=== PATIENT | male | born 1945 | race Caucasian/White ===

== ENCOUNTER 2020-02-02 02:14 | Outpatient (CLI) | payer MEDICARE, SELFPAY ==
[2020-02-02 19:10] LABS: SARS-CoV-2 RNA PCR Negative
== END 2020-02-02 02:15 | disposition home or self-care (01) ==
LOC: ANHCOVIDDT 02:15
PROVIDERS: PCP Family Medicine; Visit Provider Internal Medicine Gastroenterology
DX: Z01.818 Encounter for other preprocedural examination (principal); Z20.828 Contact with and (suspected) exposure to other viral communicable diseases
CPT/HCPCS: 87635; C9803; U0003

== ENCOUNTER 2020-02-05 00:45 | Day surgery (SDC) | payer MEDICARE, SELFPAY ==
[2020-01-29 13:54] VITALS: BMI 29.2
--- NOTE | 2020-02-05 07:54 | P.PNAN_ITS ---
Anes - Initial Pre Proc Eval Procedure: Operation Date: 02/05/20 09:00 Proposed Procedures p Screening Colonoscopy - Khurram Kumar MD Date/Time: 02/05/20 07:54 Surgeon: Khurram Kumar MD Pre Op Diagnosis: Neoplasm Screening, Hx Of Colon Polyps Patient Data Age: 74 Gender: M Height: 1.68 m Weight: 82 kg Allergies Allergy/AdvReac Type Severity Reaction Status Date / Time Penicillins Allergy Intermediate ITCHING Verified 02/05/20 08:09 Home Medications Medication Instructions Recorded Confirmed Type amlodipine [Norvasc] 5 mg PO DAILY 01/29/20 02/05/20 History atorvastatin [Lipitor] 20 mg PO DAILY 01/29/20 02/05/20 History benazepril [Lotensin] 40 mg PO DAILY 01/29/20 02/05/20 History latanoprost [Xalatan] 1 drp OPHTHALMIC (EYE) DAILY 01/29/20 02/05/20 History metoprolol tartrate 25 mg PO DAILY 01/29/20 02/05/20 History Patient hx anesthesia problems: none Family hx anesthesia problems: none [facility] Past Medical History Medical History (Updated 02/05/20 @ 08:44 by Khurram Kumar MD) Atrial fibrillation HTN (hypertension) Hypercholesterolemia Overweight (BMI 25.0-29.9) Social History Social History Smoking status: Never smoker Substance use type: does not use Living arrangements: with family Gender identity (if verbalized by the patient): Male Spiritual care concerns: No Anes - Eval Final PreProcedure Day of Procedure 02/05/20 07:54 Patient weight: overweight Heart: regular rate and rhythm Lungs: clear to auscultation and normal air movement Airway: Mallampati scale class II Neurological: alert and oriented Last oral intake: >/= 8 hours ASA classification: III Emergent: no Anesthetic plan: proceed Anesthesia type and monitoring: general GIVS Informed Consent: The patient's anesthetic plan and its attendant risks and benefits were discussed with the patient/family/POA. Questions were solicited and answers provided to the satisfaction of the patient/family/POA.
[2020-02-05 08:11] VITALS: BP 133/67; PULSE 72; RESP 16; TEMP 36.4; O2SAT 99
[2020-02-05] MEDS: LACTATED RINGERS 1,000 ML 150 ML IV CONT (08:21)
--- NOTE | 2020-02-05 08:42 | WPDGICN ---
Assessment and Plan Assessment and plan (1) History of colon polyps: Code(s): Z86.010 - Personal history of colonic polyps Status: Acute Assessment and Plan: Patient has a history of adenomatous colon polyps removed from the colon in 2017. Plan is for surveillance exam at this time ended intervals in the future. (2) Atrial fibrillation: Code(s): I48.91 - Unspecified atrial fibrillation Status: Acute GI Consult Note Consult date/time: 02/05/20 08:42 HPI: Roland Reno is a 74 year old male Presents for follow-up of colon polyps. Patient had several large adenomatous colon polyps removed from the colon in 2017. He reports his current weight appetite bowel movements are normal. He denies abdominal pain. He has had no bleeding. Family history is noncontributory. Review of Systems Review of Systems: All systems reviewed & are unremarkable except as noted in HPI and below PMFSH Past Medical History Medical History (Updated 02/05/20 @ 08:44 by Khurram Kumar MD) Atrial fibrillation HTN (hypertension) Hypercholesterolemia Overweight (BMI 25.0-29.9) Social History Social History Smoking status: Never smoker Substance use type: does not use Living arrangements: with family Gender identity (if verbalized by the patient): Male Spiritual care concerns: No Meds Home Medications and Allergies Home Medications Medication Instructions Recorded Confirmed Type amlodipine [Norvasc] 5 mg PO DAILY 01/29/20 02/05/20 History atorvastatin [Lipitor] 20 mg PO DAILY 01/29/20 02/05/20 History benazepril [Lotensin] 40 mg PO DAILY 01/29/20 02/05/20 History latanoprost [Xalatan] 1 drp OPHTHALMIC (EYE) DAILY 01/29/20 02/05/20 History metoprolol tartrate 25 mg PO DAILY 01/29/20 02/05/20 History Allergies Allergy/AdvReac Type Severity Reaction Status Date / Time Penicillins Allergy Intermediate ITCHING Verified 02/05/20 08:09 Vital Signs Vital Signs - 24 hr 02/05/20 08:11 Temperature 97.6 F Pulse Rate 72 Respiratory Rate 16 Blood Pressure 133/67 Pulse Oximetry 99 Exam Narrative: Exam Narrative: Physical exam reveals Vital Signs to be stable. HEENT exam unremarkable. Lungs are clear to auscultation and percussion. Heart is without murmur or extra sounds. Abdominal exam bowel sounds are present soft nontender with no organomegaly. Digital external rectal exam is normal.
[2020-02-05 09:41] VITALS: BP 122/73; PULSE 63; RESP 16; O2SAT 96
[2020-02-05 09:51] VITALS: BP 121/66; PULSE 56; RESP 18; O2SAT 97
[2020-02-05 10:01] VITALS: BP 127/76; PULSE 60; RESP 20; O2SAT 99
== END 2020-02-05 10:15 | disposition home or self-care (01) ==
PROVIDERS: PCP Family Medicine; Visit Provider Internal Medicine Gastroenterology
PROC: 0DJD8ZZ Inspection of Lower Intestinal Tract, Via Natural or Artificial Opening Endoscopic (ICD-10-PCS; CPT 45378; principal; 2020-02-05 09:00)
DX: Z12.11 Encounter for screening for malignant neoplasm of colon (principal); D12.5 Benign neoplasm of sigmoid colon; K64.8 Other hemorrhoids; I48.91 Unspecified atrial fibrillation; E78.00 Pure hypercholesterolemia, unspecified; I10 Essential (primary) hypertension
CPT/HCPCS: 45385; 88305; C9803; J2704; J7120; U0003

== ENCOUNTER 2020-05-27 08:59 | Outpatient (CLI) | payer MEDICARE, SELFPAY ==
--- NOTE | ~2020-05-27 | US_ITS ---
EXAMINATION: US aorta DATE: 05/27/2020 09:40 CDT INDICATION: Evaluate for abdominal aortic aneurysm TECHNIQUE: Grayscale, color Doppler, and pulsed Doppler images of the aorta and common iliac arteries were obtained. COMPARISON: 05/16/2018. FINDINGS: The proximal aorta measures 2.9 cm greatest axial dimension. The mid aorta measures 2.1 cm greatest a xial dimension. The distal aorta measures 2 cm greatest axial dimension. The right common internal il iac artery measures 1.2 cm. The left common iliac artery measures 1.2 cm. IMPRESSION: 1. Mild atherosclerosis of the abdominal aorta without evidence for aneurysm. Reviewed, dictated and finalized at location B.
== END 2020-05-27 09:00 | disposition home or self-care (01) ==
PROVIDERS: PCP Family Medicine; Visit Provider Family Medicine
DX: I71.4 Abdominal aortic aneurysm, without rupture (principal)
CPT/HCPCS: 76775

== ENCOUNTER 2021-04-16 07:17 | Emergency (ER) | payer MEDICARE, SELFPAY ==
--- NOTE | ~2021-04-16 | CT_ITS ---
EXAMINATION: CT lumbar spine wo con DATE: 04/16/2021 07:55 INDICATION: Bilateral lower extremity numbness. TECHNIQUE: Computed tomography (CT) of the lumbar spine was performed without intravenous contrast. A utomated exposure control and iterative reconstruction technique were employed. The dose-length produ ct was 864.26 mGy-cm. COMPARISON: Lumbar spine radiographs 01/11/2017 FINDINGS: Bone alignment is normal. Vertebral body heights are normal. There is mildly decreased disc height at L5-S1. The following disc levels are specifically discussed: L1-L2: The disc does not extend beyond the endplate margin. There is moderate bilateral facet joint o steoarthritis. There is no neural foraminal stenosis. There is no central canal stenosis. L2-L3: The disc is bulging. There is severe right and moderate left facet joint osteoarthritis. There is mild bilateral neural foraminal stenosis. There is no central canal stenosis. L3-L4: The disc is bulging. There is severe bilateral facet joint osteoarthritis. There is mild right and moderate left neural foraminal stenosis. There is mild central canal stenosis. L4-L5: The disc is bulging. There is severe bilateral facet joint osteoarthritis. There is moderate b ilateral neural foraminal stenosis. There is mild central canal stenosis. L5-S1: The disc is bulging. There is severe right and moderate left facet joint osteoarthritis. There is moderate and mild left neural foraminal stenosis. There is mild central canal stenosis. IMPRESSION: 1. Moderate lumbar spondylosis. Reviewed, dictated and finalized at location A. NESS RN
[2021-04-16 07:21] VITALS: BP 166/97; PULSE 86; RESP 18; TEMP 36.6; O2SAT 95
--- NOTE | 2021-04-16 07:42 | ED.GENADULT ---
HPI - General Adult General Chief complaint: Extremity Problem,Nontraumatic Stated complaint: b/l LE tingling Time Seen by Provider: 04/16/21 07:19 Source: patient Mode of arrival: ambulatory Limitations: no limitations History of Present Illness HPI narrative: Patient is 75 years old white male presented to the ED with numbness of the lower extremity bilaterally for the last 3 weeks, patient denies any weakness or having similar symptoms in the past. Patient is telling me that he been using a vibrator to stimulate his prostate because of erectile dysfunction over the last 2 to 3 months. Patient was seen by his family physician 1 week ago who started him on muscle relaxant. Patient denies any fever, chills, nausea, vomiting, urinary symptoms or bowel symptoms. Related Data Home Medications Medication Instructions Recorded Confirmed amlodipine [Norvasc] 5 mg PO DAILY 01/29/20 02/05/20 atorvastatin [Lipitor] 20 mg PO DAILY 01/29/20 02/05/20 benazepril [Lotensin] 40 mg PO DAILY 01/29/20 02/05/20 latanoprost [Xalatan] 1 drp OPHTHALMIC (EYE) DAILY 01/29/20 02/05/20 metoprolol tartrate 25 mg PO DAILY 01/29/20 02/05/20 Allergies Allergy/AdvReac Type Severity Reaction Status Date / Time Penicillins Allergy Intermediate ITCHING Verified 04/10/21 16:56 Review of Systems Review of Systems: CONSTITUTIONAL: Denies fever, chills, or sweats. EYES: Denies visual changes, redness, or discharge. ENT: Denies rhinorrhea, congestion, sore throat, or otalgia. CARDIOVASCULAR: Denies chest pain, palpitations, or edema. RESPIRATORY: Denies cough or dyspnea. GASTROINTESTINAL: Denies abdominal pain, nausea, vomiting, or diarrhea. GENITOURINARY: Denies dysuria or hematuria. SKIN: Denies rash or itching. MUSCULOSKELETAL: Denies back pain, joint pain, or myalgia. NEUROLOGIC: Denies headache, numbness, or weakness. PSYCHIATRIC: Denies anxiety or depression. [facility] Past Medical History Medical History Atrial fibrillation HTN (hypertension) Hypercholesterolemia Overweight (BMI 25.0-29.9) Social History Social History Smoking status: Never smoker Substance use type: does not use Gender identity (if verbalized by the patient): Male Spiritual care concerns: No Exam Narrative: General appearance: Well-developed, well-nourished Skin: Normal color Head: Normocephalic, nontraumatic Eyes: Clear conjunctiva ENT: Oropharynx normal, ears normal, nose normal Neck: Supple, nontender Chest and respiratory: Airway patent, no respiratory distress, no accessory muscle use Heart: Regular rate/rhythm Abdomen: Soft, nontender, no organomegaly, quiet bowel sounds Vascular: Normal peripheral pulses, normal capillary refill. Musculoskeletal: Normal range of motion, nontender back Neurologic: Alert and oriented ?3, RADIOLOGICAL ENGINEER is normal as tested, no gross motor deficit Course Course Emergency Course: Stable Vital Signs Vital signs: Vital Signs Temperature 36.6 C 04/16/21 07:21 Pulse Rate 86 04/16/21 07:21 Respiratory Rate 18 04/16/21 07:21 Blood Pressure 166/97 H 04/16/21 07:21 Pulse Oximetry 95 04/16/21 07:21 Temperature 36.6 C 04/16/21 07:21 Pulse Rate 86 04/16/21 07:21 Respiratory Rate 18 04/16/21 07:21 Blood Pressure 166/97 H 04/16/21 07:21 Pulse Oximetry 95 04/16/21 07:21 Medical Decision Making MDM Narrative Medical decision making narrative: Peripheral neuropathy is my concern. Work-up today showed no significant findings to explain patient condition. Patient need to follow-up with his family physician for vitamin deficiency an
[2021-04-16 07:56] LABS: Alanine Aminotransferase 34 U/L (4-50); Albumin Level 3.9 g/dL (3.5-5.1); Alkaline Phosphatase 76 U/L (38-126); Anion Gap 6 mmol/L (8-16); Aspartate Amino Transferase 31 U/L (17-59); Bilirubin,Total 0.9 mg/dL (0.2-1.3); Blood Urea Nitrogen 15 mg/dL (9-20); CRP < 0.5 mg/dL (<1.0); Calcium 8.7 mg/dL (8.4-10.2); Carbon Dioxide 29 mmol/L (22-30); Chloride 103 mmol/L (98-107); Estimated CRCL calculation 51 ml/min; Estimated Glomerular Filt Rate > 60; Glucose 102 mg/dL (65-110); Potassium 3.7 mmol/L (3.4-5.0); Sodium 138 mmol/L (137-145)
[2021-04-16 08:24] LABS: Basophils Percent Auto 0.4 % (0.2-1.2); Eosinophils Absolute Auto 0.2 K/mm3 (0-0.3); Eosinophils Percent Auto 2.7 % (0-4.4); Hematocrit 46.7 % (42.0-52.0); Hemoglobin 15.4 g/dL (14.0-18.0); Immature Granulocyte Absolute 0.03 K/mm3 (0.00-0.031); Immature Granulocyte Percent A 0.4 % (0-0.5); Lymphocytes Absolute Auto 1.33 K/mm3 (0.9-3.2); Lymphocytes Percent Auto 18.6 % (18.3-44.2); Mean Corpuscular Hemoglobin 30.3 pg (26-34); Mean Corpuscular Volume 91.7 fl (80-100); Mean Platelet Volume 10.2 fl (7.4-10.4); Monocytes Absolute Auto 0.7 K/mm3 (0.1-0.6); Monocytes Percent Auto 9.5 % (2.6-8.5); Neutrophils Absolute Auto 4.9 K/mm3 (1.3-6.7); Neutrophils Percent Auto 68.4 % (45.5-73.1); Platelet Count Result 185 k/mm3 (150-375); Red Blood Count 5.09 M/mm3 (4.6-6.20); White Blood Count 7.1 K/mm3 (4.5-10.0)
[2021-04-16 08:30] VITALS: BP 123/80; PULSE 64; RESP 16; O2SAT 100
[2021-04-16 09:05] LABS: Erythrocyte Sedimentation Rate 6 mm/hr (0-20)
== END 2021-04-16 08:30 | disposition home or self-care (01) ==
PROVIDERS: Emergency Provider Emergency Medicine; PCP Family Medicine
DX: R20.2 Paresthesia of skin (principal); I48.91 Unspecified atrial fibrillation; I10 Essential (primary) hypertension; E78.5 Hyperlipidemia, unspecified
CPT/HCPCS: 36415; 72131; 80053; 85025; 85652; 86140; 99284

== ENCOUNTER 2021-05-14 10:20 | Outpatient (CLI) | payer MEDICARE, SELFPAY ==
--- NOTE | ~2021-05-14 | US_ITS ---
EXAMINATION: US aorta DATE: 05/14/2021 10:49 INDICATION: Abdominal aortic aneurysm without rupture TECHNIQUE: Grayscale, color Doppler, and pulsed Doppler images of the aorta and common iliac arteries were obtained. COMPARISON: None. FINDINGS: The proximal aorta measures 3.0 x 3.0 cm. The mid aorta measures 2.9 cm. The distal aorta measures 2. 0 cm. The right common iliac artery measures 1.2 cm. The left common iliac artery measures 1.0 cm. IMPRESSION: 1. No abdominal aortic aneurysm. Reviewed, dictated and finalized at location A.
== END 2021-05-14 10:21 | disposition home or self-care (01) ==
LOC: ANHIMG 10:22
PROVIDERS: PCP Family Medicine; Visit Provider Family Medicine
DX: I71.4 Abdominal aortic aneurysm, without rupture (principal)
CPT/HCPCS: 76775

== ENCOUNTER 2021-05-20 09:57 | Outpatient (CLI) | payer MEDICARE, SELFPAY ==
--- NOTE | 2021-05-20 11:00 | NEURO_ITS ---
Impression: # Complains of burning and stinging in lower extremities. # Normal motor and sensory nerve conduction study. # Normal needle/EMG exam. # Clinical correlation recommended. Nerve Conduction Studies Anti Sensory Summary Table Stim Site NR Peak (ms) P-T Amp (?V) Site1 Site2 Delta-P (ms) Dist (cm) Man (m/s) Left Sup Fibular Anti Sensory (Ant Lat Mall) 14 cm 3.4 9.1 14 cm Ant Lat Mall 3.4 16.0 47 Right Sup Fibular Anti Sensory (Ant Lat Mall) 14 cm 3.4 11.8 14 cm Ant Lat Mall 3.4 16.0 47 Left Sural Anti Sensory (Lat Mall) Calf 3.7 11.8 Calf Lat Mall 3.7 16.0 43 Right Sural Anti Sensory (Lat Mall) Calf 3.8 10.8 Calf Lat Mall 3.8 16.0 42 Motor Summary Table Stim Site NR Onset (ms) O-P Amp (mV) Site1 Site2 Delta-0 (ms) Dist (cm) Man (m/s) Left Peroneal Motor (Vastus Med) Ankle 4.8 2.0 Popit Ankle 7.6 37.0 49 Popit 12.4 3.1 Right Peroneal Motor (Vastus Med) Ankle 5.2 3.5 Popit Ankle 6.8 34.0 50 Popit 12.0 3.0 Left Tibial Motor (Abd Ohara Brev) Ankle 4.9 7.2 Knee Ankle 7.7 37.0 48 Knee 12.6 6.1 Right Tibial Motor (Abd Ohara Brev) Ankle 4.6 8.6 Knee Ankle 7.9 37.0 47 Knee 12.5 7.4 F Wave Studies NR F-Lat (ms) L-R F-Lat (ms) Left Peroneal (Mrkrs) (EDB) 44.94 1.29 Right Peroneal (Mrkrs) (EDB) 42.19 12.75 Left Tibial (Mrkrs) (Abd Hallucis) 45.51 0.39 Right Tibial (Mrkrs) (Abd Hallucis) 45.90 0.39 EMG Side Muscle Nerve Root Ins Act Fibs Amp Dur Recrt Comment Right AntTibialis Dp Br Fibular L4-5 Nml Nml Nml Nml Nml Right Gastroc Tibial S1-2 Nml Nml Nml Nml Nml Right Fibularis Long Sup Br Fibular L5-S1 Nml Nml Nml Nml Nml Right Flex Dig Long Tibial L5-S2 Nml Nml Nml Nml Nml Right Ext Dig Brev Dp Br Fibular L5, S1 Nml Nml Nml Nml Nml Left AntTibialis Dp Br Fibular L4-5 Nml Nml Nml Nml Nml Left Gastroc Tibial S1-2 Nml Nml Nml Nml Nml Left Fibularis Long Sup Br Fibular L5-S1 Nml Nml Nml Nml Nml Left Flex Dig Long Tibial L5-S2 Nml Nml Nml Nml Nml Left Ext Dig Brev Dp Br Fibular L5, S1 Nml Nml Nml Nml Nml MTDD
== END 2021-05-20 09:58 | disposition home or self-care (01) ==
PROVIDERS: PCP Family Medicine; Visit Provider Family Medicine
DX: R20.2 Paresthesia of skin (principal)
CPT/HCPCS: 95886; 95910

== ENCOUNTER 2021-10-01 13:37 | Emergency (ER) | payer MEDICARE, SELFPAY ==
[2021-10-01 13:44] VITALS: BP 128/80; PULSE 89; RESP 16; TEMP 36.3; O2SAT 97
--- NOTE | 2021-10-01 14:22 | PC.NURSE ---
Poison Control contacted. Per Radha patient should be displaying more symptoms of chemical exposure if the tongue and lip burning were related to the Eliminator [place] and Grass Killer (Super Concentrate). She states that she would expect to see a rash, swelling of the lips and tongue and possible difficulty breathing. Radha does not suspect that his symptoms are related to the use of the product. She did not provide any recommendations on monitoring or testing.
--- NOTE | 2021-10-01 16:45 | ED.GENADULT ---
HPI - General Adult General Chief complaint: Unspecified Stated complaint: lips and tongue burning x 1 wk - chemical exposure Time Seen by Provider: 10/01/21 15:36 Source: patient Mode of arrival: ambulatory Limitations: no limitations History of Present Illness HPI narrative: This is a 76 year old male that presents to the ER for burning sensation of his lips and tongue. Reports he was outside using a weed killer. He went to shower off after and started to note some burning and irritation of his lips and tongue. Reports this has been chronic since. He has not noted any rashes or lesions in his mouth. Denies fevers. Related Data Home Medications Medication Instructions Recorded Confirmed amlodipine 5 mg tablet (Norvasc) 5 mg PO DAILY 01/29/20 02/05/20 atorvastatin 20 mg tablet (Lipitor) 20 mg PO DAILY 01/29/20 02/05/20 benazepril 40 mg tablet (Lotensin) 40 mg PO DAILY 01/29/20 02/05/20 latanoprost 0.005 % eye drops 1 drp ophthalmic (eye) DAILY 01/29/20 02/05/20 (Xalatan) metoprolol tartrate 25 mg tablet 25 mg PO DAILY 01/29/20 02/05/20 Allergies Allergy/AdvReac Type Severity Reaction Status Date / Time Penicillins Allergy Intermediate ITCHING Verified 04/10/21 16:56 Review of Systems Review of Systems: CONSTITUTIONAL: Denies fever ENT: Denies sore throat All systems reviewed & are unremarkable except as noted in HPI and below PMFSH Past Medical History Medical History Atrial fibrillation HTN (hypertension) Hypercholesterolemia Overweight (BMI 25.0-29.9) Social History Social History Smoking status: Never smoker Substance use type: does not use Gender identity (if verbalized by the patient): Male Spiritual care concerns: No Exam Narrative: GENERAL: Well-appearing, well-nourished, and in no acute distress. HEAD: Normocephalic, atraumatic. EYES: EOMI. ENT: Nares clear, no rhinorrhea or epistaxis. Mucous membranes moist. Oropharynx without tonsillar hypertrophy exudate or other lesions. No abnormal rashes or lesions noted of the lips or in the mouth NECK: Supple. No adenopathy or masses. CHEST: Clear to auscultation. No respiratory distress. No wheezes rales or rhonchi HEART: Regular rate and rhythm. No murmur heard. Normal peripheral pulses. EXTREMITIES: Normal range of motion. No edema. SKIN: Warm, dry, no rash. NEURO: No focal deficits. Alert and oriented x3. PSYCH: Normal mood and affect Course Vital Signs Vital signs: Vital Signs Temperature 97.4 F L 10/01/21 13:44 Pulse Rate 89 10/01/21 13:44 Respiratory Rate 16 10/01/21 13:44 Blood Pressure 128/80 10/01/21 13:44 Pulse Oximetry 97 10/01/21 13:44 Temperature 97.4 F L 10/01/21 13:44 Pulse Rate 89 10/01/21 13:44 Respiratory Rate 16 10/01/21 13:44 Blood Pressure 128/80 10/01/21 13:44 Pulse Oximetry 97 10/01/21 13:44 Medical Decision Making MDM Narrative Medical decision making narrative: Patient presents to the emergency department for a burning sensation of his lips and tongue. Present over the last week. Was concerned it was may be due to exposure to a weed killer product. We did call poison control who did not seem to be concerned for this. There are no abnormal lesions noted of his lips or in his mouth. He did have a small sagastume lesion noted on the bottom gums. He reports this has been present since a root canal. Otherwise there is nothing concerning on exam. He was instructed to have follow-up with ENT. He was given warnings to return to the ER Vital Signs Vital Signs: Vital Signs Temperature 97.4 F L 10/01/21 13:44 Pulse Rate 89 10/01/21 13:44 Respiratory Rate 16 10/01/21 13:44 Blood Pressure 128/80 10/01/21 13:44 Pulse Oximetry 97 10/01/21 13:44 Temperature 97.4 F L 10/01/21 13:44 Pulse Rate 89 10/01/21 13:44 Respiratory Rate 16 10/01/21 13:44 Blood Pr
[2021-10-01 17:02] VITALS: BP 112/68; PULSE 72; RESP 18; O2SAT 99
== END 2021-10-01 17:04 | disposition home or self-care (01) ==
PROVIDERS: Emergency Provider Emergency Medicine; PCP Family Medicine
DX: K14.6 Glossodynia (principal); I48.91 Unspecified atrial fibrillation; I10 Essential (primary) hypertension; E78.5 Hyperlipidemia, unspecified
CPT/HCPCS: 99281

== ENCOUNTER 2024-02-25 10:11 | Inpatient (IN) | payer MEDICARE, SELFPAY ==
--- NOTE | 2024-02-25 | ECHO_ITS ---
Patient Info Name: Roland Reno Age: 78 years : 1945 Gender: Male Ht: 66 in Wt: 185 lbs BSA: 2.00 m2 HR: 79 bpm BP: 148 / 86 mmHg Heart Rhythm: Sinus Rhythm Technical Quality: Fair Exam Date: 02/25/2024 3:05 PM Exam Location: Echo Lab Patient Status: Outpatient Admit Date: 02/25/2024 Staff Ordering Physician: Vera Barbosa DO Computer Programming Manager: Becca Perez RDCS Attending Provider: Alfredo Carrillo MD Referring Physician: Chelsey SURESH; Exam Type: CA echo dop color flow w con Study Info Indications - Acute pulmonary embolism Complete two-dimensional, color flow and Doppler transthoracic echocardiogram is performed with contrast to opacify the left ventricle and to improve the deliniation of the left ventricle endocardial borders. Contrast/Agitated Saline Contrast/Ag. Saline: Definity Amount: 2.00 ml Administered By: Becca Perez RDCS Existing IV Access: Yes IV Access Condition: patent with no signs of infiltration Summary 1. Left ventricular chamber dimension is mildly enlarged. 2. Left ventricular systolic function is normal, estimated at 50-55%. 3. There is mildly increased left ventricular wall thickness. 4. Left ventricular septal wall motion is abnormal with septal motion related to bundle branch block. 5. The left ventricular diastolic function is abnormal. 6. Left atrial chamber dimension is mildly enlarged. 7. There is mild aortic valve calcification. 8. There is mild mitral valve regurgitation. 9. The mitral valve has thickened leaflets. 10. There is mild tricuspid valve regurgitation. Left Ventricle Left ventricular chamber dimension is mildly enlarged. Left ventricular systolic function is normal, estimated at 50-55%. There is mildly increased left ventricular wall thickness. Left ventricular septal wall motion is abnormal with septal motion related to bundle branch block. The left ventricular diastolic function is abnormal. Right Ventricle Right ventricular chamber dimension is normal. Right ventricular systolic function is normal. Left Atria Left atrial chamber dimension is mildly enlarged. Right Atria Right atrial chamber dimension is normal. Atrial Septum Intact interatrial septum visualized by color flow imaging. Aortic Valve The aortic valve is probable trileaflet. There is no aortic valve stenosis. There is trace aortic valve regurgitation. There is mild aortic valve calcification. Pulmonic Valve The pulmonic valve is normal. There is no pulmonic valve stenosis. There is trace pulmonic regurgitation. Mitral Valve The mitral valve has thickened leaflets. There is no mitral valve stenosis. There is mild mitral valve regurgitation. Tricuspid Valve The tricuspid valve leaflets are normal. There is no significant tricuspid valve stenosis. There is mild tricuspid valve regurgitation. No pulmonary hypertension, estimated pulmonary arterial systolic pressure is 26 mmHg. Other Findings Pleural effusion noted. Pericardium/Pleural The pericardium appears normal. There is no pericardial effusion. Inferior Vena Cava Normal inferior vena cava with >50% collapse upon inspiration consistent with normal right atrial pressure, 10 mmHg. Aorta The prox ascending aorta size is normal. Left Ventricular Outflow Tract Name Value Normal LVOT 2D LVOT Diameter 1.97 cm LVOT Doppler LVOT Peak Gradient 6 mmHg LVOT Mean Gradient 3 mmHg LVOT VTI 20.47 cm LVOT VTI/AV VTI Ratio 0.74 LVOT Stroke Volume 62.42 ml LVOT CO 5.38 l/min LVOT CI 2.69 L/min/m2 Pulmonic Valve Name Value Normal RVOT Doppler RVOT Peak Gradient 4 mmHg PV Doppler PV Peak Gradient 6 mmHg Mitral Valve Name Value Normal MV Doppler MV Decel [place] 691.07 cm/s2 MV PHT 0 s MV Area (PHT) 3.98 cm2 4.00-5.00 MV Diastolic Function MV E Peak Velocity 131.60 cm/s MV A Peak Velocity 0.94 cm/s MV E/A 140.18 MV Decel Time 0 s MV Annular TDI MV E/e' (Septal) 20.53 <=8.00 MV E/e' (Lateral) 19.24 <=8.00 MV E/e' (Average) 19.89 Tricuspid Valve Name Value Normal TV Regurgitation Doppler TR Peak Velocity 202.55 cm/s TR Peak Gradient 16 mmHg Estimated PAP/RSVP RA Pressure 10 mmHg <=5 PA Systolic Pressure 26 mmHg <36 RV Systolic Pressure 26 mmHg <36 Aorta Name Value Normal Ascending Aorta Ao Root Diameter (MM) 2.50 cm Ao Root Diam Index (MM) 1.25 cm/m2 Aortic Valve Name Value Normal AV Doppler AV Peak Velocity 182.41 cm/s AV Peak Gradient 13 mmHg AV Mean Gradient 7 mmHg AV VTI 27.60 cm AV Area (Cont Eq VTI) 2.26 cm2 >=3.00 AV Area (Cont Eq Man) 2.07 cm2 AV Regurgitation 2D LVOT Area 3.05 cm2 Ventricles Name Value Normal LV Dimensions 2D/MM IVS Diastolic Thickness (2D) 1.08 cm 0.60-1.00 LVID Diastole (2D) 5.79 cm 4.20-5.80 LVIW Diastolic Thickness (2D) 1.14 cm 0.60-1.00 LVID Systole (2D) 4.29 cm 2.50-4.00 LVOT Diameter 1.97 cm LV Mass (2D Cubed) 267.75 g 88.00-224.00 LV Mass Index (2D Cubed) 0.01 g/cm2 0.00-0.01 Relative Wall Thickness (2D) 0.39 LV Fractional Shortening/Ejection Fraction 2D/MM LV Fractional Shortening (2D) 26 % 25-43 LV EF (2D Teicholz) 50 % 52-72 LV Diastolic Volume (4C MOD) 92.54 ml LV EF (4C MOD) 33 % LV Diastolic Volume (2C MOD) 66.76 ml LV EF (2C MOD) 24 % LV Diastolic Volume (BP MOD) 85.48 ml 62.00-150.00 LV Diastolic Volume Index (BP MOD) 0.04 l/m2 0.03-0.07 LV Systolic Volume (BP MOD) 58.90 ml 21.00-61.00 LV Systolic Volume Index (BP MOD) 0.03 l/m2 0.01-0.03 LV EF (BP MOD) 31 % 52-72 LV Diastolic Length (4C) 9.08 cm LV Systolic Length (4C) 7.52 cm LV Stroke Volume (4C MOD) 30.25 ml Atria Name Value Normal LA Dimensions LA Dimension (MM) 5.34 cm 3.00-4.10 LA Volume (4C A-L) 67.96 ml LA Volume (BP A-L) 74.97 ml RA Dimensions RA Area (4C) 14.01 cm2 <=18.00 Report Signatures
--- NOTE | ~2024-02-25 | US_ITS ---
BILATERAL LOWER EXTREMITY VENOUS ULTRASOUND Ordering provider: Vera Barbosa DO History: . Acute pulmonary embolism . Comparison: None. FINDINGS: RIGHT LOWER EXTREMITY VEINS: --COMMON FEMORAL: Patent and free of thrombus. Normal compressibility, phasic flow and augmentation. --PROXIMAL SUPERFICIAL FEMORAL: Patent and free of thrombus. Normal compressibility, phasic flow and augmentation. --DISTAL SUPERFICIAL FEMORAL: Patent and free of thrombus. Normal compressibility, phasic flow and au gmentation. --POPLITEAL: Patent and free of thrombus. Normal compressibility, phasic flow and augmentation. --POSTERIOR TIBIAL: Patent and free of thrombus. Normal compressibility, phasic flow and augmentation . LEFT LOWER EXTREMITY VEINS: --COMMON FEMORAL: Patent and free of thrombus. Normal compressibility, phasic flow and augmentation. --PROXIMAL SUPERFICIAL FEMORAL: Patent and free of thrombus. Normal compressibility, phasic flow and augmentation. --DISTAL SUPERFICIAL FEMORAL: Patent and free of thrombus. Normal compressibility, phasic flow and au gmentation. --POPLITEAL: Patent and free of thrombus. Normal compressibility, phasic flow and augmentation. --POSTERIOR TIBIAL: Patent and free of thrombus. Normal compressibility, phasic flow and augmentation . IMPRESSION: Negative bilateral lower extremity venous US. No deep vein thrombosis. Reviewed, dictated and finalized at location A. LATORY ATTORNEY
--- NOTE | ~2024-02-25 | CT_ITS ---
EXAMINATION: CTA chest PE protocol DATE: 02/25/2024 12:56 INDICATION: Hemoptysis. Abdominal pain. TECHNIQUE: Computed tomography angiography (CTA) of the chest was performed with 100 mL Omnipaque-350 intravenous contrast timed to evaluate the pulmonary arteries. Coronal maximum intensity projection 3D-reconstructions were created by the technologist. Automated exposure control and iterative reconst ruction technique were employed. The dose-length product was 422.80 mGy-cm. COMPARISON: None. FINDINGS: There are airspace and groundglass opacities involving right middle lobe, lingula, and the lower lobes, left worse than right, likely a combination of atelectasis and infarct. A calcified left lung nodule and calcified left hilar lymph nodes are consistent with old granulomatous disease. Ther e is a small left pleural effusion. The heart size is normal. No pericardial effusion. There are acut e pulmonary emboli in the right upper lobe, right lower lobe, lingula, and left lower lobe. There is mild thoracic spondylosis. IMPRESSION: 1. Bilateral acute pulmonary emboli. No right heart strain. 2. Bilateral inferior lung disease, likely a combination of atelectasis and infarct. 3. Small left pleural effusion. Reviewed, dictated and finalized at location A. NEER CONDUCTOR IMPRESSION: 1. Bilateral acute pulmonary emboli. No right heart strain. 2. Bilateral inferior lung disease, likely a combination of atelectasis and inf arct. 3. Small left pleural effusion.
--- NOTE | ~2024-02-25 | CT_ITS ---
EXAMINATION: CT abdomen pelvis w con DATE: 02/25/2024 12:53 INDICATION: Abdominal pain and swelling TECHNIQUE: Computed tomography (CT) of the abdomen and pelvis was performed with 100 mL Omnipaque-350 intravenous contrast. Automated exposure control and iterative reconstruction technique were employe d. The dose-length product was 654.63 mGy-cm. COMPARISON: None FINDINGS: Small left pleural effusion. Bandlike discoid atelectasis in the right middle and lower lobes. Region of consolidation in the left lower lobe which could represent additional atelectasis or pneumonia. R egions of groundglass opacity posterior sulcus of the right lower lobe and at the posterolateral ling eda with some peripheral consolidation. The region of groundglass opacity but appearance is suspiciou s for pulmonary infarcts and pulmonary emboli are evident in the right lower lobar pulmonary arteries . Heart size is normal. No pericardial effusion. Cholecystectomy clips the gallbladder fossa. Liver, spleen, pancreas and bilateral adrenal glands are normal. There are small regions of cortical scarring at both kidneys which could represent sequela p rior infection or infarction. No bowel obstruction. Bladder is normal. Prostatomegaly measuring 4.7 x 4.7 cm. Small fat-containing left inguinal hernia. No free intraperitoneal gas or fluid. No patholog ically enlarged abdominal or pelvic lymphadenopathy. Mild to moderate thoracic and mild lumbar spondy losis. IMPRESSION: 1. Pulmonary emboli in the right lower lobe and groundglass opacity and consolidation in the bilatera l lower lobes suspicious for associated pulmonary infarcts versus less likely pneumonia. 2. Small left pleural effusion. 3. No acute intra-abdominal/pelvic process. Reviewed, dictated and finalized at location B. R DIGGER OPERATOR IMPRESSION: 1. Pulmonary emboli in the right lower lobe and groundglass opacity and consoli dation in the bilateral lower lobes suspicious for associated pulmonary infarct s versus less likely pneumonia. 2. Small left pleural effusion. 3. No acute intra-abdominal/pelvic process.
[2024-02-25 10:54] VITALS: BP 172/98; PULSE 78; RESP 20; TEMP 36.4; O2SAT 97
--- NOTE | 2024-02-25 10:57 | ED_ITS ---
HPI - General Adult General Chief complaint: Abdominal Pain <Eliu Sandoval PA-C - Last Filed: 02/25/24 10:59> Stated complaint: Sent by Dr Reno for abdominal pain <lEiu Sandoval PA-C - Last Filed: 02/25/24 10:59> Time Seen by Provider: 02/25/24 11:56 <Eliu Sandoval PA-C - Last Filed: 02/25/24 10:59> Focused HPI: This is a 78-year-old male who presents to the ED for chief complaint of epigastric / upper abdominal pain over the past couple of days. States it feels like I am having a gallbladder attack, but I already had my gallbladder removed. Patient reports a did start Joshua Stacey after eating. States the pain is been relatively constant and will radiates somewhat into the back/ shoulder. Denies associated vomiting. However he did have an single episode of hemoptysis today with bloody phlegm. Denies chest pain or exertional component of symptoms. He does feel that breathing hurts worse. GENERAL: Well-appearing, well-nourished, and in no acute distress. HEAD: Normocephalic, atraumatic. CHEST: Clear to auscultation. No respiratory distress. HEART: Regular rate and rhythm. ABD: Epigastric tenderness present. Soft and otherwise nontender. NEURO: Alert and oriented x3. Patient screened in triage and initial orders placed. Additional care and disposition to be based upon diagnostic testing and treatment. <Eliu Sandoval PA-C - Last Filed: 02/25/24 10:59> Source: patient <Eliu Sandoval PA-C - Last Filed: 02/25/24 10:59> Mode of arrival: ambulatory <Eliu Sandoval PA-C - Last Filed: 02/25/24 10:59> Limitations: no limitations <Eliu Sandoval PA-C - Last Filed: 02/25/24 10:59> History of Present Illness HPI narrative: 78 year old male presenting to the emergency department for evaluation for abdominal bloating, shortness of breath and hemoptysis. Patient states on he had some stomach irritation secondary to food and felt that he had some increased bloating. Patient did notice some shortness of breath at that time. Patient states through the course of the day on the he had persistent symptoms. Patient presented emergency department today for evaluation for hemoptysis that started today. Patient denies any chest pain. Patient denies any prior history of PE or DVT. Patient denies any history of cancer, hormone replacement therapy or recent surgeries. Patient denies any recent falls or injuries. Patient does have a reported history of atrial fibrillation and patient stop taking his blood thinner if years ago. Patient had been advised by his primary care physician that if he was to stop his blood thinner that he needed to take an aspirin but patient states that the aspirin worsens his gastritis so he has not been taking that. <Ashok Carranza MD - Last Filed: 02/26/24 12:54> Related Data Home medications: Home Medications ?Medication ?Instructions ?Recorded ?Confirmed ?Last Taken ?Type latanoprost 0.005 % eye drops 1 drp ophthalmic (eye) DAILY 01/29/20 02/25/24 02/25/24 History (Xalatan) omeprazole 20 mg capsule,delayed 20 mg PO DAILY PRN acid reflux 02/25/24 02/25/24 Unknown History release rosuvastatin 5 mg tablet 5 mg PO HS 02/25/24 02/25/24 02/25/24 History <Eliu Sandoval PA-C - Last Filed: 02/25/24 10:59> Allergies/adverse reactions: Allergies Allergy/AdvReac Type Severity Reaction Status Date / Time Penicillins Allergy Intermediate ITCHING Verified 11/30/23 09:36 <Eliu Sandoval PA-C - Last Filed: 02/25/24 10:59> Review of Systems 2 Review of Systems: All systems reviewed & are unremarkable except as noted in HPI and below <Ashok Carranza MD - Last Filed: 02/26/24 12:54> [facility] Past Medical History Medical History: Medical History (Updated 02/26/24 @ 10:53 by Brock Stafford NP) Benign positional vertigo Paroxysmal atrial fibrillation Atherosclerosis of aorta Post-void dribbling Benign prostatic hyperplasia with lower urinary tract symptoms Gastritis, unspecified, without bleeding GERD (gastroesophageal reflux disease) Abdominal aortic aneurysm without rupture Essential (primary) hypertension Hypercholesterolemia <Eliu Sandoval PA-C - Last Filed: 02/25/24 10:59> Surgical History Surgical History: Surgical History (Updated 02/25/24 @ 20:52 by Vera Barbosa DO) Status post cholecystectomy History of right inguinal hernia repair <Eliu Sandoval PA-C - Last Filed: 02/25/24 10:59> Social History Social History: Social History (Updated 02/25/24 @ 20:54 by Vera Barbosa DO) Social History: He lives with his of 60 years. They raised 3 children. 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 He walks 2.5 miles per day. Denies history of tobacco use. He used to occasionally drink alcohol in moderation but has not done so in many years. He denies illicit substance use. Code status: Full code Healthcare power of mergers and acquisitions attorney: Tiffany () Smoking status: Never smoker Second hand tobacco smoke exposure: No Alcohol intake: never Substance use: never Substance use type: does not use Do You Feel Safe in your Home?: Yes Lack of Transportation: No Lack of Food: Never True Current Housing: I Have Housing Concerned About Future Housing: No Difficulty Paying Gas/Electric Bills: No Difficulty Paying for Meds: No Currently Unemployed: No Education: High School Diploma/GED Difficulty w/ Childcare or Family Care: No Living arrangements: with family Occupation/Education: retired Gender identity (if verbalized by the patient): Male Sexual Orientation (if Verbalized by the Patient): Straight or Heterosexual Spiritual care concerns: No <Eliu Sandoval PA-C - Last Filed: 02/25/24 10:59> Course Vital Signs Vital signs: Vital Signs Temperature 97.6 F 02/25/24 10:54 Pulse Rate 78 02/25/24 10:54 Respiratory Rate 20 02/25/24 10:54 Blood Pressure 172/98 H 02/25/24 10:54 Pulse Oximetry 97 02/25/24 10:54 Oxygen Delivery Room Air 02/25/24 10:54 Temperature 99.1 F 02/26/24 06:00 Pulse Rate 80 02/26/24 12:00 Respiratory Rate 18 02/26/24 06:00 Blood Pressure 166/77 H 02/26/24 06:00 Pulse Oximetry 90 02/26/24 07:20 Oxygen Delivery Room Air 02/26/24 09:05 <Eliu Sandoval PA-C - Last Filed: 02/25/24 10:59> Vital Signs Temperature 97.6 F 02/25/24 10:54 Pulse Rate 78 02/25/24 10:54 Respiratory Rate 20 02/25/24 10:54 Blood Pressure 172/98 H 02/25/24 10:54 Pulse Oximetry 97 02/25/24 10:54 Oxygen Delivery Room Air 02/25/24 10:54 Temperature 99.1 F 02/26/24 06:00 Pulse Rate 80 02/26/24 12:00 Respiratory Rate 18 02/26/24 06:00 Blood Pressure 166/77 H 02/26/24 06:00 Pulse Oximetry 90 02/26/24 07:20 Oxygen Delivery Room Air 02/26/24 09:05 <Ashok Carranza MD - Last Filed: 02/26/24 12:54> Medical Decision Making MDM Narrative Medical decision making narrative: A 78-year-old male presenting to the emergency department for evaluation for abdominal bloating discomfort with hemoptysis and shortness of breath. Patient's abdominal CT showed no acute abnormalities but the CTA chest did show evidence of bilateral pulmonary embolisms without right heart strain. EKG shows a left bundle branch but no evidence of acute STEMI and patient denies any current chest pain. Patient is afebrile but does have a leukocytosis of 15.7 with a hemoglobin of 16, no significant abnormalities the patient's CMP UA was negative for infection. Patient denies any active bleeding or recent surgeries. Patient will be started on IV heparin for treatment for the pulmonary embolisms. Patient and family were updated on the results of the workup and plan for treatment and admission. All questions concerns were addressed. I discussed the case with the hospitalist and patient was accepted to [facility] <Ashok Carranza MD - Last Filed: 02/26/24 12:54> Differential Diagnosis Differential Diagnosis: Cholelithiasis, cholecystitis, colitis, diverticulitis, gastritis, small- bowel obstruction, pulmonary embolism, pneumonia, COVID, RSV, influenza <Ashok Carranza MD - Last Filed: 02/26/24 12:54> Vital Signs Vital Signs: Vital Signs Temperature 97.6 F 02/25/24 10:54 Pulse Rate 78 02/25/24 10:54 Respiratory Rate 20 02/25/24 10:54 Blood Pressure 172/98 H 02/25/24 10:54 Pulse Oximetry 97 02/25/24 10:54 Oxygen Delivery Room Air 02/25/24 10:54 Temperature 99.1 F 02/26/24 06:00 Pulse Rate 80 02/26/24 12:00 Respiratory Rate 18 02/26/24 06:00 Blood Pressure 166/77 H 02/26/24 06:00 Pulse Oximetry 90 02/26/24 07:20 Oxygen Delivery Room Air 02/26/24 09:05 <Eliu Sandoval PA-C - Last Filed: 02/25/24 10:59> Vital Signs Temperature 97.6 F 02/25/24 10:54 Pulse Rate 78 02/25/24 10:54 Respiratory Rate 20 02/25/24 10:54 Blood Pressure 172/98 H 02/25/24 10:54 Pulse Oximetry 97 02/25/24 10:54 Oxygen Delivery Room Air 02/25/24 10:54 Temperature 99.1 F 02/26/24 06:00 Pulse Rate 80 02/26/24 12:00 Respiratory Rate 18 02/26/24 06:00 Blood Pressure 166/77 H 02/26/24 06:00 Pulse Oximetry 90 02/26/24 07:20 Oxygen Delivery Room Air 02/26/24 09:05 <Ashok Carranza MD - Last Filed: 02/26/24 12:54> Lab Data Result diagrams: 02/26/24 03:30 02/26/24 03:30 <Eliu Sandoval PA-C - Last Filed: 02/25/24 10:59> Labs: Lab Results 02/25/24 02/25/24 02/25/24 Range/Units 12:30 12:44 13:03 WBC 15.7 H (4.5-10.0) K/mm3 RBC 5.27 (4.6-6.20) M/mm3 Hgb 16.0 (14.0-18.0) g/dL Hct 46.5 (42.0-52.0) % MCV 88.2 (80-100) fl MCH 30.4 (26-34) pg MCHC 34.4 (32-36) g/dl RDW 13.1 (11.5-14.5) % Plt Count 152 (150-375) k/mm3 MPV 10.7 H (7.4-10.4) fl Immature Gran % (Auto) 0.4 (0-0.5) % Neut % (Auto) 82.6 H (45.5-73.1) % Lymph % (Auto) 7.3 L (18.3-44.2) % Collier % (Auto) 9.4 H (2.6-8.5) % Eos % (Auto) 0.2 (0-4.4) % Baso % (Auto) 0.1 L (0.2-1.2) % Lymph # (Auto) 1.15 (0.9-3.2) K/mm3 Collier # (Auto) 1.5 H (0.1-0.6) K/mm3 Eos # (Auto) 0.0 (0-0.3) K/mm3 Baso # (Auto) 0.0 (0.0-0.1) K/mm3 Abs Immat Gran (auto) 0.06 H (0.00-0.031) K/mm3 Absolute Neuts (auto) 13.0 H (1.3-6.7) K/mm3 Absolute Nucleated RBC 0.000 (0.0-0.012) K/mm3 Nucleated RBC % 0.0 (0.0-0.2) % PT (11.1-14.7) Seconds INR APTT (22.3-36.8) Seconds Sodium 138 (137-145) mmol/L Potassium 4.2 (3.4-5.0) mmol/L Chloride 105 (98-107) mmol/L Carbon Dioxide 28 (22-30) mmol/L Anion Gap 5 (4-12) mmol/L BUN 20 (9-20) mg/dL Creatinine 1.00 1.10 (0.7-1.3) mg/dL Estim Creat Clear Calc 54 49 ml/min Estimated GFR > 60 > 60 (59 - ) Glucose 113 H (65-110) mg/dL Calcium 9.0 (8.4-10.2) mg/dL Total Bilirubin 1.2 (0.2-1.3) mg/dL AST 24 (17-59) U/L ALT 17 (6-50) U/L Alkaline Phosphatase 86 (38-126) U/L Total Protein 7.0 (6.3-8.2) g/dL Albumin 4.0 (3.5-5.1) g/dL Lipase 28 (23-300) U/L Urine Color Yellow (Yellow) Urine Appearance Clear (Clear) Urine pH 6.0 (5.0-9.0) Ur Specific [place] > 1.045 H (1.001-1.035) Urine Protein 1+ H (Negative) mg/dL Urine Glucose (UA) Negative (Negative) mg/dL Urine Ketones 2+ H (Negative) mg/dL Ur Blood (Man) Negative (Negative) Urine Nitrate Negative (Negative) Urine Bilirubin Negative (Negative) Urine Urobilinogen 1.0 (<2.0) mg/dL Leukocyte Esterase Rfl Negative (Negative) SYLVIA/UL Urine RBC 0-2 (0-2) /hpf Urine WBC 0-5 (0-3) /hpf Ur Squamous Epith Cells None seen (Few) /hpf Urine Bacteria None seen /hpf Urine Casts 0-2 Influenza A (RT-PCR) (Negative) Influenza B (RT-PCR) (Negative) RSV (RT-PCR) (Negative) SARS-CoV-2 RNA (RT-PCR) (Negative) 02/25/24 02/25/24 Range/Units 13:11 13:46 WBC (4.5-10.0) K/mm3 RBC (4.6-6.20) M/mm3 Hgb (14.0-18.0) g/dL Hct (42.0-52.0) % MCV (80-100) fl MCH (26-34) pg MCHC (32-36) g/dl RDW (11.5-14.5) % Plt Count (150-375) k/mm3 MPV (7.4-10.4) fl Immature Gran % (Auto) (0-0.5) % Neut % (Auto) (45.5-73.1) % Lymph % (Auto) (18.3-44.2) % Collier % (Auto) (2.6-8.5) % Eos % (Auto) (0-4.4) % Baso % (Auto) (0.2-1.2) % Lymph # (Auto) (0.9-3.2) K/mm3 Collier # (Auto) (0.1-0.6) K/mm3 Eos # (Auto) (0-0.3) K/mm3 Baso # (Auto) (0.0-0.1) K/mm3 Abs Immat Gran (auto) (0.00-0.031) K/mm3 Absolute Neuts (auto) (1.3-6.7) K/mm3 Absolute Nucleated RBC (0.0-0.012) K/mm3 Nucleated RBC % (0.0-0.2) % PT 14.0 (11.1-14.7) Seconds INR 1.1 APTT 36.0 (22.3-36.8) Seconds Sodium (137-145) mmol/L Potassium (3.4-5.0) mmol/L Chloride (98-107) mmol/L Carbon Dioxide (22-30) mmol/L Anion Gap (4-12) mmol/L BUN (9-20) mg/dL Creatinine (0.7-1.3) mg/dL Estim Creat Clear Calc ml/min Estimated GFR (59 - ) Glucose (65-110) mg/dL Calcium (8.4-10.2) mg/dL Total Bilirubin (0.2-1.3) mg/dL AST (17-59) U/L ALT (6-50) U/L Alkaline Phosphatase (38-126) U/L Total Protein (6.3-8.2) g/dL Albumin (3.5-5.1) g/dL Lipase (23-300) U/L Urine Color (Yellow) Urine Appearance (Clear) Urine pH (5.0-9.0) Ur Specific [place] (1.001-1.035) Urine Protein (Negative) mg/dL Urine Glucose (UA) (Negative) mg/dL Urine Ketones (Negative) mg/dL Ur Blood (Man) (Negative) Urine Nitrate (Negative) Urine Bilirubin (Negative) Urine Urobilinogen (<2.0) mg/dL Leukocyte Esterase Rfl (Negative) SYLVIA/UL Urine RBC (0-2) /hpf Urine WBC (0-3) /hpf Ur Squamous Epith Cells (Few) /hpf Urine Bacteria /hpf Urine Casts Influenza A (RT-PCR) Negative (Negative) Influenza B (RT-PCR) Negative (Negative) RSV (RT-PCR) Negative (Negative) SARS-CoV-2 RNA (RT-PCR) Negative (Negative) <Eliu Sandoval PA-C - Last Filed: 02/25/24 10:59> Lab Results 02/25/24 02/25/24 02/25/24 Range/Units 12:30 12:44 13:03 WBC 15.7 H (4.5-10.0) K/mm3 RBC 5.27 (4.6-6.20) M/mm3 Hgb 16.0 (14.0-18.0) g/dL Hct 46.5 (42.0-52.0) % MCV 88.2 (80-100) fl MCH 30.4 (26-34) pg MCHC 34.4 (32-36) g/dl RDW 13.1 (11.5-14.5) % Plt Count 152 (150-375) k/mm3 MPV 10.7 H (7.4-10.4) fl Immature Gran % (Auto) 0.4 (0-0.5) % Neut % (Auto) 82.6 H (45.5-73.1) % Lymph % (Auto) 7.3 L (18.3-44.2) % Collier % (Auto) 9.4 H (2.6-8.5) % Eos % (Auto) 0.2 (0-4.4) % Baso % (Auto) 0.1 L (0.2-1.2) % Lymph # (Auto) 1.15 (0.9-3.2) K/mm3 Collier # (Auto) 1.5 H (0.1-0.6) K/mm3 Eos # (Auto) 0.0 (0-0.3) K/mm3 Baso # (Auto) 0.0 (0.0-0.1) K/mm3 Abs Immat Gran (auto) 0.06 H (0.00-0.031) K/mm3 Absolute Neuts (auto) 13.0 H (1.3-6.7) K/mm3 Absolute Nucleated RBC 0.000 (0.0-0.012) K/mm3 Nucleated RBC % 0.0 (0.0-0.2) % PT (11.1-14.7) Seconds INR APTT (22.3-36.8) Seconds Sodium 138 (137-145) mmol/L Potassium 4.2 (3.4-5.0) mmol/L Chloride 105 (98-107) mmol/L Carbon Dioxide 28 (22-30) mmol/L Anion Gap 5 (4-12) mmol/L BUN 20 (9-20) mg/dL Creatinine 1.00 1.10 (0.7-1.3) mg/dL Estim Creat Clear Calc 54 49 ml/min Estimated GFR > 60 > 60 (59 - ) Glucose 113 H (65-110) mg/dL Calcium 9.0 (8.4-10.2) mg/dL Total Bilirubin 1.2 (0.2-1.3) mg/dL AST 24 (17-59) U/L ALT 17 (6-50) U/L Alkaline Phosphatase 86 (38-126) U/L Total Protein 7.0 (6.3-8.2) g/dL Albumin 4.0 (3.5-5.1) g/dL Lipase 28 (23-300) U/L Urine Color Yellow (Yellow) Urine Appearance Clear (Clear) Urine pH 6.0 (5.0-9.0) Ur Specific [place] > 1.045 H (1.001-1.035) Urine Protein 1+ H (Negative) mg/dL Urine Glucose (UA) Negative (Negative) mg/dL Urine Ketones 2+ H (Negative) mg/dL Ur Blood (Man) Negative (Negative) Urine Nitrate Negative (Negative) Urine Bilirubin Negative (Negative) Urine Urobilinogen 1.0 (<2.0) mg/dL Leukocyte Esterase Rfl Negative (Negative) SYLVIA/UL Urine RBC 0-2 (0-2) /hpf Urine WBC 0-5 (0-3) /hpf Ur Squamous Epith Cells None seen (Few) /hpf Urine Bacteria None seen /hpf Urine Casts 0-2 Influenza A (RT-PCR) (Negative) Influenza B (RT-PCR) (Negative) RSV (RT-PCR) (Negative) SARS-CoV-2 RNA (RT-PCR) (Negative) 02/25/24 02/25/24 Range/Units 13:11 13:46 WBC (4.5-10.0) K/mm3 RBC (4.6-6.20) M/mm3 Hgb (14.0-18.0) g/dL Hct (42.0-52.0) % MCV (80-100) fl MCH (26-34) pg MCHC (32-36) g/dl RDW (11.5-14.5) % Plt Count (150-375) k/mm3 MPV (7.4-10.4) fl Immature Gran % (Auto) (0-0.5) % Neut % (Auto) (45.5-73.1) % Lymph % (Auto) (18.3-44.2) % Collier % (Auto) (2.6-8.5) % Eos % (Auto) (0-4.4) % Baso % (Auto) (0.2-1.2) % Lymph # (Auto) (0.9-3.2) K/mm3 Collier # (Auto) (0.1-0.6) K/mm3 Eos # (Auto) (0-0.3) K/mm3 Baso # (Auto) (0.0-0.1) K/mm3 Abs Immat Gran (auto) (0.00-0.031) K/mm3 Absolute Neuts (auto) (1.3-6.7) K/mm3 Absolute Nucleated RBC (0.0-0.012) K/mm3 Nucleated RBC % (0.0-0.2) % PT 14.0 (11.1-14.7) Seconds INR 1.1 APTT 36.0 (22.3-36.8) Seconds Sodium (137-145) mmol/L Potassium (3.4-5.0) mmol/L Chloride (98-107) mmol/L Carbon Dioxide (22-30) mmol/L Anion Gap (4-12) mmol/L BUN (9-20) mg/dL Creatinine (0.7-1.3) mg/dL Estim Creat Clear Calc ml/min Estimated GFR (59 - ) Glucose (65-110) mg/dL Calcium (8.4-10.2) mg/dL Total Bilirubin (0.2-1.3) mg/dL AST (17-59) U/L ALT (6-50) U/L Alkaline Phosphatase (38-126) U/L Total Protein (6.3-8.2) g/dL Albumin (3.5-5.1) g/dL Lipase (23-300) U/L Urine Color (Yellow) Urine Appearance (Clear) Urine pH (5.0-9.0) Ur Specific [place] (1.001-1.035) Urine Protein (Negative) mg/dL Urine Glucose (UA) (Negative) mg/dL Urine Ketones (Negative) mg/dL Ur Blood (Man) (Negative) Urine Nitrate (Negative) Urine Bilirubin (Negative) Urine Urobilinogen (<2.0) mg/dL Leukocyte Esterase Rfl (Negative) SYLVIA/UL Urine RBC (0-2) /hpf Urine WBC (0-3) /hpf Ur Squamous Epith Cells (Few) /hpf Urine Bacteria /hpf Urine Casts Influenza A (RT-PCR) Negative (Negative) Influenza B (RT-PCR) Negative (Negative) RSV (RT-PCR) Negative (Negative) SARS-CoV-2 RNA (RT-PCR) Negative (Negative) <Ashok Carranza MD - Last Filed: 02/26/24 12:54> Critical Care Time Critical Care Time Critical Care Time: Yes <Ashok Carranza MD - Last Filed: 02/26/24 12:54> Total Critical Care Time: 35 <Ashok Carranza MD - Last Filed: 02/26/24 12:54> Discharge Plan Discharge Clinical Impression: Hemoptysis Pulmonary embolism Qualifiers: Pulmonary embolism type: multiple subsegmental (without acute cor pulmonale) Q ualified Code(s): I26.94 - Multiple subsegmental thrombotic pulmonary emboli without acute cor pulmonale <Eliu Sandoval PA-C - Last Filed: 02/25/24 10:59> Patient Disposition: Still a Patient <Eliu Sandoval PA-C - Last Filed: 02/25/24 10:59> Condition: Serious <Eliu Sandoval PA-C - Last Filed: 02/25/24 10:59>
--- NOTE | 2024-02-25 10:58 | ECG_ITS ---
Test Date: 2024-02-25 12:33:19 Measurements Intervals Nordman Rate: 89 P: -33 MN: 93 QRS: -31 QRSD: 146 T: 128 QT: 403 QTc: 491 Interpretive Statements SINUS RHYTHM WITH SHORT MN INTERVAL WITH FREQUENT VENTRICULAR PREMATURE COMPLEXES LEFT AXIS DEVIATION [QRS AXIS < -30] LEFT BUNDLE BRANCH BLOCK [120+ ms QRS DURATION, 80+ ms Q/S IN V1/V2, 85+ ms R IN I/aVL/V5/V6] ABNORMAL ECG Electronically Signed On 02-25-2024 17:25:46 PODIATRY DOCTOR by Luis Alberto Rojo M.D.
[2024-02-25 12:36] LABS: Basophils Percent Auto 0.1 % (0.2-1.2); Eosinophils Percent Auto 0.2 % (0-4.4); Hematocrit 46.5 % (42.0-52.0); Immature Granulocyte Absolute 0.06 K/mm3 (0.00-0.031); Immature Granulocyte Percent A 0.4 % (0-0.5); Lymphocytes Absolute Auto 1.15 K/mm3 (0.9-3.2); Lymphocytes Percent Auto 7.3 % (18.3-44.2); Mean Corpuscular HGB Conc 34.4 g/dl (32-36); Mean Corpuscular Hemoglobin 30.4 pg (26-34); Mean Corpuscular Volume 88.2 fl (80-100); Mean Platelet Volume 10.7 fl (7.4-10.4); Monocytes Absolute Auto 1.5 K/mm3 (0.1-0.6); Monocytes Percent Auto 9.4 % (2.6-8.5); Neutrophils Percent Auto 82.6 % (45.5-73.1); Platelet Count Result 152 k/mm3 (150-375); Red Blood Count 5.27 M/mm3 (4.6-6.20); Red Cell Distribution Width 13.1 % (11.5-14.5); White Blood Count 15.7 K/mm3 (4.5-10.0)
[2024-02-25 12:46] LABS: Alanine Aminotransferase 17 U/L (6-50); Alkaline Phosphatase 86 U/L (38-126); Anion Gap 5 mmol/L (4-12); Aspartate Amino Transferase 24 U/L (17-59); Bilirubin,Total 1.2 mg/dL (0.2-1.3); Blood Urea Nitrogen 20 mg/dL (9-20); Carbon Dioxide 28 mmol/L (22-30); Chloride 105 mmol/L (98-107); Estimated CRCL calculation 54 ml/min; Estimated Glomerular Filt Rate > 60; Glucose 113 mg/dL (65-110); Lipase 28 U/L (23-300); Potassium 4.2 mmol/L (3.4-5.0); Sodium 138 mmol/L (137-145)
[2024-02-25 12:47] LABS: Estimated CRCL calculation 49 ml/min; Estimated Glomerular Filt Rate > 60
[2024-02-25 13:14] LABS: Add Urine Microscopic? YES; Appearance Urine Clear (Clear); Bacteria Urine None Seen /hpf; Bilirubin Urine Negative (Negative); Blood Urine Negative (Negative); Color Urine Yellow (Yellow); Glucose Urine UA Negative (Negative); Ketones Urine 2+ mg/dL (Negative); Leukocyte Esterase Ur Negative LEU/UL (Negative); Nitrate Urine Negative (Negative); Non Pathogenic Casts 0-2; Protein Urine 1+ mg/dL (Negative); RBC Urine 0-2 /hpf (0-2); Specific Grav Ur > 1.045 (1.001-1.035); Squamous Epithelial Cell Urine None Seen /hpf (Few); WBC Urine 0-5 /hpf (0-3)
--- NOTE | 2024-02-25 13:23 | ED_ITS ---
HPI - General Adult General Chief complaint: Abdominal Pain Stated complaint: Sent by Dr Reno for abdominal pain Time Seen by Provider: 02/25/24 11:56 Source: patient Mode of arrival: ambulatory Limitations: no limitations History of Present Illness HPI narrative: 78 year old male presenting to the emergency department for evaluation for abdominal bloating, shortness of breath and hemoptysis. Patient states on he had some stomach irritation secondary to food and felt that he had some increased bloating. Patient did notice some shortness of breath at that time. Patient states through the course of the day on the he had persistent symptoms. Patient presented emergency department today for evaluation for hemoptysis that started today. Patient denies any chest pain. Patient denies any prior history of PE or DVT. Patient denies any history of cancer, hormone replacement therapy or recent surgeries. Patient denies any recent falls or injuries. Patient does have a reported history of atrial fibrillation and patient stop taking his blood thinner if years ago. Patient had been advised by his primary care physician that if he was to stop his blood thinner that he needed to take an aspirin but patient states that the aspirin worsens his gastritis so he has not been taking that. Related Data Home Medications ?Medication ?Instructions ?Recorded ?Confirmed ?Last Taken ?Type latanoprost 0.005 % eye drops 1 drp ophthalmic (eye) DAILY 01/29/20 11/30/23 02/04/20 23:00 History (Xalatan) Allergies Allergy/AdvReac Type Severity Reaction Status Date / Time Penicillins Allergy Intermediate ITCHING Verified 11/30/23 09:36 Review of Systems 2 Review of Systems: All systems reviewed & are unremarkable except as noted in HPI and below PMFSH Past Medical History Medical History Abdominal aortic aneurysm without rupture Atherosclerosis of aorta Benign prostatic hyperplasia with lower urinary tract symptoms Essential (primary) hypertension Gastritis, unspecified, without bleeding GERD (gastroesophageal reflux disease) Hypercholesterolemia Paroxysmal atrial fibrillation Post-void dribbling Social History Social History Smoking status: Never smoker Second hand tobacco smoke exposure: No Alcohol intake: never Substance use: never Substance use type: does not use Lack of Transportation: No Lack of Food: Never True Current Housing: I Have Housing Concerned About Future Housing: No Difficulty Paying Gas/Electric Bills: No Difficulty Paying for Meds: No Currently Unemployed: YES Difficulty w/ Childcare or Family Care: No Living arrangements: with family Occupation/Education: retired Gender identity (if verbalized by the patient): Male Sexual Orientation (if Verbalized by the Patient): Straight or Heterosexual Spiritual care concerns: No Exam 2 Narrative: APPEARANCE: Well appearing, no pain, no distress, well-nourished. HEAD: normocephalic, atraumatic. EYES: PERRLA/EOMI, conjunctivae clear. NOSE: Normal no drainage EARS:TMS clear with good light reflex. THROAT: Pharynx clear, no exudate. NECK: Supple. No adenopathy, no masses. RESPIRATORY: Airway patent, respirations nonlabored. Clear to auscultation bilaterally, no rales, rhonchi, wheezing. CARDIOVASCULAR: Regular rate and rhythm without murmurs rubs or gallops. ABDOMINAL: Epigastric tenderness to palpation MUSCULOSKELETAL: Moves all extremities. Strength/ROM intact, No edema, No calf tenderness. NEURO: Alert. Cranial nerves II through XII intact. Good gait. Good coordination SKIN: Warm, dry. Normal Color Course Vital Signs Vital signs: Vital Signs Temperature 97.6 F 02/25/24 10:54 Pulse Rate 78 02/25/24 10:54 Respiratory Rate 20 02/25/24 10:54 Blood Pressure 172/98 H 02/25/24 10:54 Pulse Oximetry 97 02/25/24 10:54 Oxygen Delivery Room Air 02/25/24 10:54 Temperature 97.6 F 02/25/24 10:54 Pulse Rate 78 02/25/24 10:54 Respiratory Rate 20 02/25/24 10:54 Blood Pressure 172/98 H 02/25/24 10:54 Pulse Oximetry 97 02/25/24 10:54 Oxygen Delivery Room Air 02/25/24 10:54 Medical Decision Making MDM Narrative Medical decision making narrative: 78-year-old male presenting to the emergency department for evaluation for hemoptysis and shortness of breath. Patient is afebrile but does have a leukocytosis of 15.7. Hemoglobin is 16. Patient has no acute abnormalities on his CMP, CT abdomen pelvis showed no acute intra-abdominal pathology. CTA chest did show bilateral pulmonary emboli with no right heart strain. EKG shows a left bundle branch, patient denies any current chest pain Patient does have a prior history of atrial fibrillation and has not been taking blood thinners for multiple years. Vital Signs Vital Signs: Vital Signs Temperature 97.6 F 02/25/24 10:54 Pulse Rate 78 02/25/24 10:54 Respiratory Rate 20 02/25/24 10:54 Blood Pressure 172/98 H 02/25/24 10:54 Pulse Oximetry 97 02/25/24 10:54 Oxygen Delivery Room Air 02/25/24 10:54 Temperature 97.6 F 02/25/24 10:54 Pulse Rate 78 02/25/24 10:54 Respiratory Rate 20 02/25/24 10:54 Blood Pressure 172/98 H 02/25/24 10:54 Pulse Oximetry 97 02/25/24 10:54 Oxygen Delivery Room Air 02/25/24 10:54 Lab Data 02/25/24 12:30 02/25/24 12:44 Labs: Lab Results 02/25/24 02/25/24 02/25/24 Range/Units 12:30 12:44 13:03 WBC 15.7 H (4.5-10.0) K/mm3 RBC 5.27 (4.6-6.20) M/mm3 Hgb 16.0 (14.0-18.0) g/dL Hct 46.5 (42.0-52.0) % MCV 88.2 (80-100) fl MCH 30.4 (26-34) pg MCHC 34.4 (32-36) g/dl RDW 13.1 (11.5-14.5) % Plt Count 152 (150-375) k/mm3 MPV 10.7 H (7.4-10.4) fl Immature Gran % (Auto) 0.4 (0-0.5) % Neut % (Auto) 82.6 H (45.5-73.1) % Lymph % (Auto) 7.3 L (18.3-44.2) % [place] % (Auto) 9.4 H (2.6-8.5) % Eos % (Auto) 0.2 (0-4.4) % Baso % (Auto) 0.1 L (0.2-1.2) % Lymph # (Auto) 1.15 (0.9-3.2) K/mm3 [place] # (Auto) 1.5 H (0.1-0.6) K/mm3 Eos # (Auto) 0.0 (0-0.3) K/mm3 Baso # (Auto) 0.0 (0.0-0.1) K/mm3 Abs Immat Gran (auto) 0.06 H (0.00-0.031) K/mm3 Absolute Neuts (auto) 13.0 H (1.3-6.7) K/mm3 Absolute Nucleated RBC 0.000 (0.0-0.012) K/mm3 Nucleated RBC % 0.0 (0.0-0.2) % PT INR APTT Sodium 138 (137-145) mmol/L Potassium 4.2 (3.4-5.0) mmol/L Chloride 105 (98-107) mmol/L Carbon Dioxide 28 (22-30) mmol/L Anion Gap 5 (4-12) mmol/L BUN 20 (9-20) mg/dL Creatinine 1.00 1.10 (0.7-1.3) mg/dL Estim Creat Clear Calc 54 49 ml/min Estimated GFR > 60 > 60 (59 - ) Glucose 113 H (65-110) mg/dL Calcium 9.0 (8.4-10.2) mg/dL Total Bilirubin 1.2 (0.2-1.3) mg/dL AST 24 (17-59) U/L ALT 17 (6-50) U/L Alkaline Phosphatase 86 (38-126) U/L Total Protein 7.0 (6.3-8.2) g/dL Albumin 4.0 (3.5-5.1) g/dL Lipase 28 (23-300) U/L Urine Color Pending Urine Appearance Pending Urine pH Pending Ur Specific [place] Pending Urine Protein Pending Urine Glucose (UA) Pending Urine Ketones Pending Ur Blood (Man) Pending Urine Nitrate Pending Urine Bilirubin Pending Urine Urobilinogen Pending Leukocyte Esterase Rfl Pending 02/25/24 Range/Units 13:11 WBC (4.5-10.0) K/mm3 RBC (4.6-6.20) M/mm3 Hgb (14.0-18.0) g/dL Hct (42.0-52.0) % MCV (80-100) fl MCH (26-34) pg MCHC (32-36) g/dl RDW (11.5-14.5) % Plt Count (150-375) k/mm3 MPV (7.4-10.4) fl Immature Gran % (Auto) (0-0.5) % Neut % (Auto) (45.5-73.1) % Lymph % (Auto) (18.3-44.2) % [place] % (Auto) (2.6-8.5) % Eos % (Auto) (0-4.4) % Baso % (Auto) (0.2-1.2) % Lymph # (Auto) (0.9-3.2) K/mm3 [place] # (Auto) (0.1-0.6) K/mm3 Eos # (Auto) (0-0.3) K/mm3 Baso # (Auto) (0.0-0.1) K/mm3 Abs Immat Gran (auto) (0.00-0.031) K/mm3 Absolute Neuts (auto) (1.3-6.7) K/mm3 Absolute Nucleated RBC (0.0-0.012) K/mm3 Nucleated RBC % (0.0-0.2) % PT Pending INR Pending APTT Pending Sodium (137-145) mmol/L Potassium (3.4-5.0) mmol/L Chloride (98-107) mmol/L Carbon Dioxide (22-30) mmol/L Anion Gap (4-12) mmol/L BUN (9-20) mg/dL Creatinine (0.7-1.3) mg/dL Estim Creat Clear Calc ml/min Estimated GFR (59 - ) Glucose (65-110) mg/dL Calcium (8.4-10.2) mg/dL Total Bilirubin (0.2-1.3) mg/dL AST (17-59) U/L ALT (6-50) U/L Alkaline Phosphatase (38-126) U/L Total Protein (6.3-8.2) g/dL Albumin (3.5-5.1) g/dL Lipase (23-300) U/L Urine Color Urine Appearance Urine pH Ur Specific [place] Urine Protein Urine Glucose (UA) Urine Ketones Ur Blood (Man) Urine Nitrate Urine Bilirubin Urine Urobilinogen Leukocyte Esterase Rfl Discharge Plan Discharge Clinical Impression: Hemoptysis, Pulmonary embolism Patient Disposition: Still a Patient Condition: Serious Instructions: Antibiotic Form Patient Language: Japanese Prescriptions: No Action omeprazole 20 mg capsule,delayed release(DR/EC) 20 mg PO DAILY Qty: 90 1RF meclizine 25 mg tablet 25 mg PO BID PRN (Reason: dizziness) Qty: 30 0RF rosuvastatin 5 mg tablet 5 mg PO DAILY Qty: 90 1RF benazepril [Lotensin] 40 mg tablet 40 mg PO DAILY Qty: 90 1RF latanoprost [Xalatan] 0.005 % drops 1 drp ophthalmic (eye) DAILY amlodipine 5 mg tablet 5 mg PO DAILY Qty: 90 1RF metoprolol tartrate 25 mg tablet See Rx Instructions .ROUTE .COMPLEX Qty: 90 1RF Dose Instruction: Take 1 tablet by mouth once daily Rx Instructions: Take 1 tablet by mouth once daily Follow-up/Referrals: Cristian Reno MD [Primary Care Provider] -
[2024-02-25 13:31] LABS: INR 1.1
[2024-02-25 14:15] VITALS: BP 136/90; PULSE 68; RESP 16; O2SAT 98
--- NOTE | 2024-02-25 14:15 | P.HP_ITS ---
H&P: HPI History of Present Illness Date/Time: 02/25/24 17:15 Chief Complaint: Abdominal pain and distension Narrative: 78-year-old male with past medical history of paroxysmal atrial fibrillation (not on chronic anticoagulation),glaucoma, essential hypertension, dyslipidemia and gastritis/GERD who presented to the ER with 3 days of abdominal pain and bloating. The patient reports the symptoms started on [place]. He and his drove to her daughter's house about an hour and 10 minutes away. Shortly after eating a car bridge meal he developed abdominal bloating distension, flatulence and pain that radiated up into his left shoulder. He reported that he felt similar to when he was having gallbladder trouble but he and knows he does not have his gallbladder anymore. He reported that this discomfort was worse with deep breathing. He reported that it was so bad that he was having trouble taking a deep breath. The majority of his discomfort was in the left upper quadrant region. He felt as if he needed to have a bowel movement. He would try different positions which would help him pass some gas but did not really improve his symptoms. He reported that he was so short of breath he could not lay down to sleep. He has not had much appetite due to his discomfort. He denies any fevers or chills. He has not had any calf pain tenderness or swelling. Today he became more acutely concerned when he started having small amounts of hemoptysis with blood-streaked phlegm. He denies any palpitations or tachycardia.. CT of the chest abdomen and pelvis demonstrated bilateral acute pulmonary emboli with bilateral inferior lung disease likely combination of atelectasis and pulmonary infarct with small bilateral pleural effusions. Patient was started on heparin drip. He denies any known risk factors for pulmonary embolism including sedentary lifestyle, cancer, hormone replacement therapy or recent surgical procedures. He does have a distant history of paroxysmal atrial fibrillation but quit taking his blood thinner years ago of his own accord. His primary recommended the patient least started on full-dose aspirin therapy but the patient. This is well as it seemed to worsen his gastritis. He reports an active lifestyle in still works on his 5 acres of land. When the weather is good he walks 2.5 miles per day. Source of information includes patient's and the patient himself who are both good historians. Also through review of past medical records and ER physician report. The patient gave permission for me to discuss his care with his who is at bedside. Review of Systems 2 Review of Systems: 12 systems were reviewed with pertinent positives and negatives per HPI. Except as documented in the HPI, all other systems were reviewed and are negative. [facility] Past Medical History Medical History (Updated 02/25/24 @ 14:29 by Vera Barbosa DO) Benign positional vertigo Paroxysmal atrial fibrillation Atherosclerosis of aorta Post-void dribbling Benign prostatic hyperplasia with lower urinary tract symptoms Gastritis, unspecified, without bleeding GERD (gastroesophageal reflux disease) Abdominal aortic aneurysm without rupture Essential (primary) hypertension Hypercholesterolemia Surgical History Surgical History (Updated 02/25/24 @ 20:52 by Vera Barbosa DO) Status post cholecystectomy History of right inguinal hernia repair Social History Social History (Updated 02/25/24 @ 20:54 by Vera Barbosa DO) Social History: He lives with his of 60 years. They raised 3 children. 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 He walks 2.5 miles per day. Denies history of tobacco use. He used to occasionally drink alcohol in moderation but has not done so in many years. He denies illicit substance use. Code status: Full code Healthcare power of gravel weigher: Tiffany () Smoking status: Never smoker Second hand tobacco smoke exposure: No Alcohol intake: never Substance use: never Substance use type: does not use Do You Feel Safe in your Home?: Yes Lack of Transportation: No Lack of Food: Never True Current Housing: I Have Housing Concerned About Future Housing: No Difficulty Paying Gas/Electric Bills: No Difficulty Paying for Meds: No Currently Unemployed: No Education: High School Diploma/GED Difficulty w/ Childcare or Family Care: No Living arrangements: with family Occupation/Education: retired Gender identity (if verbalized by the patient): Male Sexual Orientation (if Verbalized by the Patient): Straight or Heterosexual Spiritual care concerns: No Meds Home Medications and Allergies Home Medications ?Medication ?Instructions ?Recorded ?Confirmed ?Type latanoprost 0.005 % eye drops 1 drp ophthalmic (eye) DAILY 01/29/20 02/25/24 History (Xalatan) meclizine 25 mg tablet 25 mg PO BID PRN dizziness #30 tabs 05/06/22 02/25/24 Rx amlodipine 5 mg tablet 5 mg PO DAILY #90 tabs 11/09/23 02/25/24 Rx metoprolol tartrate 25 mg tablet See Rx Instructions .Route 11/09/23 02/25/24 Rx .COMPLEX #90 tabs benazepril 40 mg tablet (Lotensin) 40 mg PO DAILY #90 tabs 11/30/23 02/25/24 Rx omeprazole 20 mg capsule,delayed 20 mg PO DAILY PRN acid reflux 02/25/24 02/25/24 History release rosuvastatin 5 mg tablet 5 mg PO HS 02/25/24 02/25/24 History Allergies Allergy/AdvReac Type Severity Reaction Status Date / Time Penicillins Allergy Intermediate ITCHING Verified 11/30/23 09:36 Vital Signs Vital Signs - 24 hr 02/25/24 10:54 Temperature 97.6 F Pulse Rate 78 Respiratory Rate 20 Blood Pressure 172/98 H Pulse Oximetry 97 Oxygen Delivery Room Air Exam 2 Narrative: Weight 84.5 kg BMI 30.1 Const: Other: No acute distress, obese, appears stated age HENMT: Other: Mucous membranes are tacky, no oral pharyngeal erythema, crowded posterior oropharynx Eyes: Other: Bilateral cataracts noted, no conjunctival pallor, no scleral icterus Neck: Other: No lymphadenopathy, no thyromegaly Resp: Other: Splinting respirations, no accessory muscle use, mild tachypnea Cardio: Other: Regular rate, regular rhythm, 2+ bilateral radial pedal pulses, no JVD GI: Other: Distended, tight, nontender to palpation, hypoactive bowel sounds Skin: Other: No jaundice, no pallor, no petechiae Neuro: Other: Alert orient x4, speech is clear, no facial asymmetry, no localizing neurologic deficits noted during the course of conversation Extrem: Other: No clubbing, cyanosis or edema Psych: Other: Appropriate mood and affect, pleasant and cooperative, judgment and insight intact H&P: Results Labs Labs: Laboratory Tests 02/25/24 12:30 02/25/24 12:44 02/25/24 02/25/24 02/25/24 12:30 12:44 13:03 WBC 15.7 H RBC 5.27 Hgb 16.0 Hct 46.5 MCV 88.2 MCH 30.4 MCHC 34.4 RDW 13.1 Plt Count 152 MPV 10.7 H Immature Gran % (Auto) 0.4 Neut % (Auto) 82.6 H Lymph % (Auto) 7.3 L [place] % (Auto) 9.4 H Eos % (Auto) 0.2 Baso % (Auto) 0.1 L Lymph # (Auto) 1.15 [place] # (Auto) 1.5 H Eos # (Auto) 0.0 Baso # (Auto) 0.0 Abs Immat Gran (auto) 0.06 H Absolute Neuts (auto) 13.0 H Absolute Nucleated RBC 0.000 Nucleated RBC % 0.0 PT INR APTT Sodium 138 Potassium 4.2 Chloride 105 Carbon Dioxide 28 Anion Gap 5 BUN 20 Creatinine 1.00 1.10 Estim Creat Clear Calc 54 49 Estimated GFR > 60 > 60 Glucose 113 H Calcium 9.0 Total Bilirubin 1.2 AST 24 ALT 17 Alkaline Phosphatase 86 Total Protein 7.0 Albumin 4.0 Lipase 28 Urine Color Yellow Urine Appearance Clear Urine pH 6.0 Ur Specific [place] > 1.045 H Urine Protein 1+ H Urine Glucose (UA) Negative Urine Ketones 2+ H Ur Blood (Man) Negative Urine Nitrate Negative Urine Bilirubin Negative Urine Urobilinogen 1.0 Leukocyte Esterase Rfl Negative Urine RBC 0-2 Urine WBC 0-5 Ur Squamous Epith Cells None seen Urine Bacteria None seen Urine Casts 0-2 Influenza A (RT-PCR) Influenza B (RT-PCR) RSV (RT-PCR) SARS-CoV-2 RNA (RT-PCR) 02/25/24 02/25/24 13:11 13:46 WBC RBC Hgb Hct MCV MCH MCHC RDW Plt Count MPV Immature Gran % (Auto) Neut % (Auto) Lymph % (Auto) [place] % (Auto) Eos % (Auto) Baso % (Auto) Lymph # (Auto) [place] # (Auto) Eos # (Auto) Baso # (Auto) Abs Immat Gran (auto) Absolute Neuts (auto) Absolute Nucleated RBC Nucleated RBC % PT 14.0 INR 1.1 APTT 36.0 Sodium Potassium Chloride Carbon Dioxide Anion Gap BUN Creatinine Estim Creat Clear Calc Estimated GFR Glucose Calcium Total Bilirubin AST ALT Alkaline Phosphatase Total Protein Albumin Lipase Urine Color Urine Appearance Urine pH Ur Specific [place] Urine Protein Urine Glucose (UA) Urine Ketones Ur Blood (Man) Urine Nitrate Urine Bilirubin Urine Urobilinogen Leukocyte Esterase Rfl Urine RBC Urine WBC Ur Squamous Epith Cells Urine Bacteria Urine Casts Influenza A (RT-PCR) Pending Influenza B (RT-PCR) Pending RSV (RT-PCR) Pending SARS-CoV-2 RNA (RT-PCR) Pending Impressions Abdomen/Pelvis CT 02/25/24 12:54 IMPRESSION: 1. Pulmonary emboli in the right lower lobe and groundglass opacity and consolidation in the bilateral lower lobes suspicious for associated pulmonary infarcts versus less likely pneumonia. 2. Small left pleural effusion. 3. No acute intra-abdominal/pelvic process. Chest CTA 02/25/24 12:57 IMPRESSION: 1. Bilateral acute pulmonary emboli. No right heart strain. 2. Bilateral inferior lung disease, likely a combination of atelectasis and infarct. 3. Small left pleural effusion. EKG: Rate 89 sinus rhythm with short [place] interval of frequent premature ventricular complexes, left axis deviation, left bundle-branch block no previous EKG available for comparison QTC slightly prolonged at 491 All imaging and EKGs personally reviewed and interpreted. And unless stated otherwise agree with radiologic and cardiology interpretation. Assessment and Plan Assessment and plan (1) Pulmonary embolism: Qualifiers: Pulmonary embolism type: multiple subsegmental (without acute cor pulmonale) Qualified Code(s): I26.94 - Multiple subsegmental thrombotic pulmonary emboli without acute cor pulmonale Code(s): I26.99 - Other pulmonary embolism without acute cor pulmonale Status: Acute (2) Hemoptysis: Code(s): R04.2 - Hemoptysis Status: Acute (3) Essential (primary) hypertension: Code(s): I10 - Essential (primary) hypertension Status: Acute (4) Uncontrolled hypertension: Code(s): I10 - Essential (primary) hypertension Status: Acute (5) QT prolongation: Code(s): R94.31 - Abnormal electrocardiogram [ECG] [EKG] Status: Acute (6) GERD (gastroesophageal reflux disease): Qualifiers: Esophagitis presence: esophagitis presence not specified Qualified Code(s): K21.9 - Gastro-esophageal reflux disease without esophagitis Code(s): K21.9 - Gastro-esophageal reflux disease without esophagitis Status: Acute Plan Patient has acute unprovoked pulmonary embolism with likely associated lower lobe infarcts. No evidence of right heart strain in no acute oxygen requirement. Patient been started on heparin drip per protocol. Will obtain echocardiogram to further evaluate for potential right heart strain. Will check venous Dopplers to rule out lower extremity DVT. CT evidence does not demonstrate any evidence of malignancy and patient does not have a known history of hypercoagulable state with no new medication regimen. He may not be as mobile or active so a sedentary lifestyle may be playing a component in cot formation. Will transition the patient to novel anticoagulants in the next 24- 48 hours. The patient does have some bilateral lower lobe consolidation with some mild leukocytosis but given presence of pulmonary embolism pulmonary infarct is more likely than acute infectious process will repeat CBC and monitor for evidence of infection. Will not start antibiotic therapy at this time is leukocytosis is more likely due to look avoid reaction. I checked a respiratory viral panel to rule out COVID which could lead to hypercoagulable state. COVID flu and RSV PCR were negative. Patient's blood pressures are elevated above goal currently. Could be due to acute strain or pain. Will resume the patient's home antihypertensives including metoprolol, pens a pill and Norvasc. Will add IV hydralazine as needed for systolic blood pressures greater than 160. Patient does have QT prolongation on EKG will avoid any QT prolonging agents. Will monitor patient on telemetry and continue home antihypertensives. Will continue home PPI therapy. Patient has been admitted as observation status. Patient's echocardiogram had already returned bedtime my shift had in did. Will initiate patient on Xarelto starting in a.m.. Quality VTE Prophylaxis VTE prophylaxis: pharmacologic ordered (Heparin GGT per protocol) Hospitalist MIPS Advance Care Plan I have confirmed that the patient's Advanced Care Plan is present, code status is documented, or surrogate decision maker is listed in patient medical record.: Yes Medication Reconciliation I have utilized all available resources to obtain, update and review the patients current medications (includes all prescriptions, OTC, herbals, cannabis, and nutritional supplements).: Yes
[2024-02-25 14:26] LABS: Influenza A QL RT-PCR Negative (Negative); Influenza B QL RT-PCR Negative (Negative); RSV RNA, RT-PCR Negative (Negative); SARS-CoV-2 RNA PCR Negative (Negative)
[2024-02-25] MEDS: HEPARIN SODIUM 5,000 UNITS/ML VIAL 6000 UNITS IV PUSH (14:41)
[2024-02-25] MEDS: HEPARIN SOD/D5W 100 UNITS/ML 25,000 UNITS/250 ML BAG 13 UNITS IV CONT (14:41)
[2024-02-25] MEDS: SODIUM CHLORIDE 0.9% IV 1,000 ML 999 ML IV CONT (14:42)
[2024-02-25 15:14] VITALS: BP 168/76; PULSE 84; RESP 16; O2SAT 98
[2024-02-25 15:41] VITALS: BMI 30.1
[2024-02-25 16:00] VITALS: BP 167/82; PULSE 97; RESP 18; TEMP 36.7; O2SAT 96
[2024-02-25] MEDS: PERFLUTREN LIPID MICROSPHERES 1.5 ML VIAL DILUTED TO 10 ML TOTAL VOLUME IV PUSH (16:00)
--- NOTE | 2024-02-25 16:07 | ECG_ITS ---
Test Date: 2024-02-26 10:46:53 Measurements Intervals [place] Rate: 87 P: -35 IA: 93 QRS: -17 QRSD: 145 T: 149 QT: 401 QTc: 485 Interpretive Statements SINUS RHYTHM WITH SHORT IA INTERVAL WITH OCCASIONAL VENTRICULAR PREMATURE COMPLEXES LEFT BUNDLE BRANCH BLOCK [120+ ms QRS DURATION, 80+ ms Q/S IN V1/V2, 85+ ms R IN I/aVL/V5/V6] Compared to ECG 02/25/2024 12:33:19 Left-axis deviation no longer present Electronically Signed On 02-26-2024 11:24:47 CHILD DEVELOPMENT TEACHER by Luis Alberto Rojo M.D.
--- NOTE | 2024-02-25 16:29 | IVDEFINITY ---
Prior to administration of IV Definity the patient was educated on the risks and benefits of the imaging enhancing agent including potential adverse side effects. The patient verbalized understanding. Allergies were verified. No exclusion criteria were identified and at least one of the following inclusion criteria were met: 1) physician request, 2) patient technically difficult to image (per the [place] [employer] Echocardi[employer] guidelines of two or more segments not discernable within the apical view), or 3) questionable left ventricular function. ?
--- NOTE | 2024-02-25 16:32 | ADMGEN ---
This patient, Roland Reon, was admitted to Medical Room 242-01. Patient/family oriented to hospital policies and general routines including ID bracelet, bed and alarms, visiting hours, pain management, procedures, bathroom and other care routines, personal items, smoking policy, room service/diet, and visiting hours. Information on how to activate the Rapid Response Team has been discussed. Patient/Family are encouraged to report perceived risks to care and to ask questions if they do not understand what they are told or what they should do.
[2024-02-25 17:57] VITALS: PULSE 93
[2024-02-25] MEDS: MORPHINE SULFATE (*CRX) 2 MG/ML INJ IV PUSH (19:57)
[2024-02-25 20:00] VITALS: BP 175/84; PULSE 104; PULSE 94; RESP 16; TEMP 37.6; O2SAT 94
[2024-02-25 21:17] LABS: Partial Thromboplastin Time 119.7 Seconds (22.3-36.8)
[2024-02-25] MEDS: ROSUVASTATIN 5 MG TABLET PO (21:47)
[2024-02-25] MEDS: LATANOPROST 0.005% OP SOLN 2.5 ML BTL 1 DROP EACH EYE (21:47)
[2024-02-26] VITALS (11 sets, daily range): BP systolic 159–171; BP diastolic 77–84; PULSE 74–102; RESP 14–20; TEMP 36.8–37.3; O2SAT 90–95
[2024-02-26 03:35] LABS: Basophils Percent Auto 0.2 % (0.2-1.2); Eosinophils Percent Auto 0.2 % (0-4.4); Hematocrit 40.7 % (42.0-52.0); Hemoglobin 14.3 g/dL (14.0-18.0); Immature Granulocyte Absolute 0.03 K/mm3 (0.00-0.031); Immature Granulocyte Percent A 0.2 % (0-0.5); Lymphocytes Absolute Auto 0.95 K/mm3 (0.9-3.2); Lymphocytes Percent Auto 7.6 % (18.3-44.2); Mean Corpuscular HGB Conc 35.1 g/dl (32-36); Mean Corpuscular Hemoglobin 30.8 pg (26-34); Mean Corpuscular Volume 87.5 fl (80-100); Mean Platelet Volume 10.2 fl (7.4-10.4); Monocytes Absolute Auto 1.5 K/mm3 (0.1-0.6); Monocytes Percent Auto 12.1 % (2.6-8.5); Neutrophils Absolute Auto 9.9 K/mm3 (1.3-6.7); Neutrophils Percent Auto 79.7 % (45.5-73.1); Platelet Count Result 142 k/mm3 (150-375); Red Blood Count 4.65 M/mm3 (4.6-6.20); Red Cell Distribution Width 13.2 % (11.5-14.5); White Blood Count 12.5 K/mm3 (4.5-10.0)
[2024-02-26 03:48] LABS: Partial Thromboplastin Time 100.5 Seconds (22.3-36.8)
[2024-02-26 03:50] LABS: Anion Gap 2 mmol/L (4-12); Blood Urea Nitrogen 18 mg/dL (9-20); Calcium 8.3 mg/dL (8.4-10.2); Carbon Dioxide 27 mmol/L (22-30); Chloride 107 mmol/L (98-107); Estimated CRCL calculation 49 ml/min; Estimated Glomerular Filt Rate > 60; Glucose 121 mg/dL (65-110); Potassium 3.9 mmol/L (3.4-5.0); Sodium 136 mmol/L (137-145)
[2024-02-26] MEDS: hydrALAZINE HCL 20 MG/ML VIAL 10 MG IV PUSH (04:34)
[2024-02-26] MEDS: METOPROLOL TARTRATE 25 MG TABLET PO (09:00)
[2024-02-26] MEDS: amLODIPine BESYLATE 5 MG TABLET PO (09:04)
[2024-02-26] MEDS: RIVAROXABAN 15 MG TABLET PO ×2 (09:04→17:29)
[2024-02-26] MEDS: lisinopriL 20 MG TABLET 40 MG PO (09:04)
[2024-02-26] MEDS: DOCUSATE SODIUM 100 MG CAPSULE PO (09:51)
[2024-02-26] MEDS: polyethylene glycoL 3350 17 GM POWD.PACK PO (09:51)
[2024-02-26 09:56] LABS: Partial Thromboplastin Time 46.2 Seconds (22.3-36.8)
--- NOTE | 2024-02-26 10:21 | PM.IMPN ---
Progress Note: A&P Assessment and Plan (1) Pulmonary embolism: Qualifiers: Pulmonary embolism type: multiple subsegmental (without acute cor pulmonale) Qualified Code(s): I26.94 - Multiple subsegmental thrombotic pulmonary emboli without acute cor pulmonale Code(s): I26.99 - Other pulmonary embolism without acute cor pulmonale Status: Acute Assessment and Plan: - Unknown origin with no significant cause. - No DVT on isai. LE. - Initially on Heparin drip but now on Xarelto. - ECHO pending. - Senior Tech Manufacturing Engineering consulted. - Further w/u pending talent acquisition sourcer consult. (2) Acute hypoxic respiratory failure: Code(s): J96.01 - Acute respiratory failure with hypoxia Status: Acute Assessment and Plan: - Likely related to # 1. - Currently good O2 sats > 90 % on RA. - Senior Tech Manufacturing Engineering consulted. - We'll consider supplemental O2 if sats < 90 %. (3) Hemoptysis: Code(s): R04.2 - Hemoptysis Status: Acute Assessment and Plan: - Likely related to above. - Senior Tech Manufacturing Engineering consulted. - Further w/u pending pulmonary consult. (4) Essential (primary) hypertension: Code(s): I10 - Essential (primary) hypertension Status: Acute Assessment and Plan: - BP trending high. - Will f/u after AM meds and adjust meds as needed. (5) QT prolongation: Code(s): R94.31 - Abnormal electrocardiogram [ECG] [EKG] Status: Acute Assessment and Plan: - Possibly related to # 1. - Repeat EKG pending. (6) GERD (gastroesophageal reflux disease): Qualifiers: Esophagitis presence: esophagitis presence not specified Qualified Code(s): K21.9 - Gastro-esophageal reflux disease without esophagitis Code(s): K21.9 - Gastro-esophageal reflux disease without esophagitis Status: Acute Assessment and Plan: - Continue PPI. Time Spent With Patient Time with patient: 25 - 35 minutes Subjective Date/time seen: 02/26/24 10:21 Patient states he feels much better compared to yesterday and his breathing is much better. Interval history: Patient on bedrest and noted with some SOB with minimal activity. Review of Systems Review of Systems: 12 systems were reviewed with pertinent positives and negatives per HPI. Except as documented in the HPI, all other systems were reviewed and are negative. All systems reviewed & are unremarkable except as noted in HPI and below Exam Narrative: General: Fair appearing, no acute distress. HEENT: PERRL, EOM, anicteric, moist mucosa. NECK: Supple. LUNGS: Clear bilaterally. Heart: Regular rhythm, no murmurs, Tele with PVC's. Abdomen: Soft, non-tender, non-distended, +ve BS X4 quadrants. Extremities: Acyanotic, no edema. Skin: Warm and dry. Neuro: Well oriented, CN II-XII grossly intact. Psych: Pleasant and co-operative. Objective Data Vital Signs Vital Signs: Vital Signs - 24 hr 02/25/24 10:54 02/25/24 14:15 02/25/24 15:14 Temperature 97.6 F Pulse Rate 78 68 84 Respiratory Rate 20 16 16 Blood Pressure 172/98 H 136/90 168/76 H Pulse Oximetry 97 98 98 Oxygen Delivery Room Air 02/25/24 15:40 02/25/24 16:00 02/25/24 17:57 Temperature 98.1 F Pulse Rate 97 93 Respiratory Rate 18 Blood Pressure 167/82 H Pulse Oximetry 96 Oxygen Delivery Room Air 02/25/24 20:00 02/25/24 20:00 02/26/24 00:00 Temperature 99.7 F H Pulse Rate 104 H 94 74 Respiratory Rate 16 Blood Pressure 175/84 H Pulse Oximetry 94 Oxygen Delivery 02/26/24 04:00 02/26/24 04:00 02/26/24 06:00 Temperature 98.4 F 99.1 F Pulse Rate 74 87 82 Respiratory Rate 20 18 Blood Pressure 171/78 H 166/77 H Pulse Oximetry 91 93 Oxygen Delivery 02/26/24 07:20 02/26/24 09:00 Temperature Pulse Rate 91 Respiratory Rate Blood Pressure Pulse Oximetry 90 Oxygen Delivery Room Air Intake/Output Intake/Output: Intake & Output 02/23/24 02/24/24 02/25/24 02/26/24 23:59 23:59 23:59 23:59 Intake Total 529.9 866.8 Balance 529.9 866.8 Meds/Results Medications: Active Medications Generic Name Dose Route Start Last Admin Trade Name Freq PRN Reason Stop Dose Admin Acetaminophen 650 mg 02/25/24 20:58 Acetaminophen 325 Mg Tablet PO Q4H PRN Mild Pain (1-3) or Fever Al Hydrox/Mg Hydrox/Simethicone 30 ml 02/25/24 20:58 Mag Hydrox/Al Hydrox/Simeth 30 Ml Udc PO Q6H PRN Indigestion Amlodipine Besylate 5 mg 02/26/24 09:00 02/26/24 09:04 Amlodipine Besylate 5 Mg Tablet PO 5 mg DAILY WILLIAM Administration Bisacodyl 5 mg 02/26/24 09:14 Bisacodyl 5 Mg Tablet Ec PO QAM PRN Constipation Docusate Sodium 100 mg 02/26/24 09:20 02/26/24 09:51 Docusate Sodium 100 Mg Capsule PO 100 mg DAILY WILLIAM Administration Hydralazine HCl 10 mg 02/25/24 14:30 02/26/24 04:34 Hydralazine Hcl 20 Mg/Ml Vial IV PUSH 10 mg Q4H PRN Administration SBP greater than 160 Latanoprost 1 drop 02/25/24 21:00 02/25/24 21:47 Latanoprost 0.005% Op Soln 2.5 Ml Btl EACH EYE 1 drop HS WILLIAM Administration Lisinopril 40 mg 02/26/24 09:00 02/26/24 09:04 Lisinopril 20 Mg Tablet PO 40 mg QAM WILLIAM Administration Metoprolol Tartrate 25 mg 02/26/24 09:00 02/26/24 09:00 Metoprolol Tartrate 25 Mg Tablet PO 25 mg DAILY WILLIAM Administration Morphine Sulfate 2 mg 02/25/24 15:03 02/25/24 19:57 Morphine Sulfate (*Crx) 2 Mg/Ml Inj IV PUSH 2 mg Q4H PRN Administration Pain Rated 7-10 Pantoprazole Sodium 40 mg 02/25/24 21:14 Pantoprazole 40 Mg Tablet PO DAILY PRN acid reflux Polyethylene Glycol 17 gm 02/26/24 09:15 02/26/24 09:51 Polyethylene Glycol 3350 17 Gm Powd.Pack PO 17 gm QAM WILLIAM Administration Rivaroxaban 15 mg 02/26/24 08:00 02/26/24 09:04 Rivaroxaban 15 Mg Tablet PO 03/17/24 17:01 15 mg BIDWM WILLIAM Administration Rivaroxaban 20 mg 03/18/24 17:00 Rivaroxaban 20 Mg Tablet PO DAILY@1700 [facility] Rosuvastatin Calcium 5 mg 02/25/24 21:00 02/25/24 21:47 Rosuvastatin 5 Mg Tablet PO 5 mg HS [facility] Administration Radiology Results: ITS Impressions Abdomen/Pelvis CT 02/25/24 12:54 IMPRESSION: 1. Pulmonary emboli in the right lower lobe and groundglass opacity and consolidation in the bilateral lower lobes suspicious for associated pulmonary infarcts versus less likely pneumonia. 2. Small left pleural effusion. 3. No acute intra-abdominal/pelvic process. Chest CTA 02/25/24 12:57 IMPRESSION: 1. Bilateral acute pulmonary emboli. No right heart strain. 2. Bilateral inferior lung disease, likely a combination of atelectasis and infarct. 3. Small left pleural effusion. Venous Doppler Study 02/25/24 15:08 IMPRESSION: Negative bilateral lower extremity venous US. No deep vein thrombosis. Labs Labs: Laboratory Results - last 24 hr 02/25/24 02/25/24 02/25/24 12:30 12:44 13:03 WBC 15.7 H RBC 5.27 Hgb 16.0 Hct 46.5 MCV 88.2 MCH 30.4 MCHC 34.4 RDW 13.1 Plt Count 152 MPV 10.7 H Immature Gran % (Auto) 0.4 Neut % (Auto) 82.6 H Lymph % (Auto) 7.3 L [place] % (Auto) 9.4 H Eos % (Auto) 0.2 Baso % (Auto) 0.1 L Lymph # (Auto) 1.15 [place] # (Auto) 1.5 H Eos # (Auto) 0.0 Baso # (Auto) 0.0 Abs Immat Gran (auto) 0.06 H Absolute Neuts (auto) 13.0 H Absolute Nucleated RBC 0.000 Nucleated RBC % 0.0 PT INR APTT Sodium 138 Potassium 4.2 Chloride 105 Carbon Dioxide 28 Anion Gap 5 BUN 20 Creatinine 1.00 1.10 Estim Creat Clear Calc 54 49 Estimated GFR > 60 > 60 Glucose 113 H Calcium 9.0 Total Bilirubin 1.2 AST 24 ALT 17 Alkaline Phosphatase 86 Total Protein 7.0 Albumin 4.0 Lipase 28 Urine Color Yellow Urine Appearance Clear Urine pH 6.0 Ur Specific [place] > 1.045 H Urine Protein 1+ H Urine Glucose (UA) Negative Urine Ketones 2+ H Ur Blood (Man) Negative Urine Nitrate Negative Urine Bilirubin Negative Urine Urobilinogen 1.0 Leukocyte Esterase Rfl Negative Urine RBC 0-2 Urine WBC 0-5 Ur Squamous Epith Cells None seen Urine Bacteria None seen Urine Casts 0-2 Influenza A (RT-PCR) Influenza B (RT-PCR) RSV (RT-PCR) SARS-CoV-2 RNA (RT-PCR) 02/25/24 02/25/24 02/25/24 13:11 13:46 20:53 WBC RBC Hgb Hct MCV MCH MCHC RDW Plt Count MPV Immature Gran % (Auto) Neut % (Auto) Lymph % (Auto) [place] % (Auto) Eos % (Auto) Baso % (Auto) Lymph # (Auto) [place] # (Auto) Eos # (Auto) Baso # (Auto) Abs Immat Gran (auto) Absolute Neuts (auto) Absolute Nucleated RBC Nucleated RBC % PT 14.0 INR 1.1 APTT 36.0 119.7 H Sodium Potassium Chloride Carbon Dioxide Anion Gap BUN Creatinine Estim Creat Clear Calc Estimated GFR Glucose Calcium Total Bilirubin AST ALT Alkaline Phosphatase Total Protein Albumin Lipase Urine Color Urine Appearance Urine pH Ur Specific [place] Urine Protein Urine Glucose (UA) Urine Ketones Ur Blood (Man) Urine Nitrate Urine Bilirubin Urine Urobilinogen Leukocyte Esterase Rfl Urine RBC Urine WBC Ur Squamous Epith Cells Urine Bacteria Urine Casts Influenza A (RT-PCR) Negative Influenza B (RT-PCR) Negative RSV (RT-PCR) Negative SARS-CoV-2 RNA (RT-PCR) Negative 02/26/24 02/26/24 03:30 09:36 WBC 12.5 H RBC 4.65 Hgb 14.3 Hct 40.7 L MCV 87.5 MCH 30.8 MCHC 35.1 RDW 13.2 Plt Count 142 L MPV 10.2 Immature Gran % (Auto) 0.2 Neut % (Auto) 79.7 H Lymph % (Auto) 7.6 L [place] % (Auto) 12.1 H Eos % (Auto) 0.2 Baso % (Auto) 0.2 Lymph # (Auto) 0.95 [place] # (Auto) 1.5 H Eos # (Auto) 0.0 Baso # (Auto) 0.0 Abs Immat Gran (auto) 0.03 Absolute Neuts (auto) 9.9 H Absolute Nucleated RBC 0.000 Nucleated RBC % 0.0 PT INR APTT 100.5 H 46.2 H Sodium 136 L Potassium 3.9 Chloride 107 Carbon Dioxide 27 Anion Gap 2 L BUN 18 Creatinine 1.10 Estim Creat Clear Calc 49 Estimated GFR > 60 Glucose 121 H Calcium 8.3 L Total Bilirubin AST ALT Alkaline Phosphatase Total Protein Albumin Lipase Urine Color Urine Appearance Urine pH Ur Specific [place] Urine Protein Urine Glucose (UA) Urine Ketones Ur Blood (Man) Urine Nitrate Urine Bilirubin Urine Urobilinogen Leukocyte Esterase Rfl Urine RBC Urine WBC Ur Squamous Epith Cells Urine Bacteria Urine Casts Influenza A (RT-PCR) Influenza B (RT-PCR) RSV (RT-PCR) SARS-CoV-2 RNA (RT-PCR) Quality VTE Prophylaxis VTE prophylaxis: pharmacologic ordered (Xarelto) Hospitalist MIPS Advance Care Plan I have confirmed that the patient's Advanced Care Plan is present, code status is documented, or surrogate decision maker is listed in patient medical record.: Yes Medication Reconciliation I have utilized all available resources to obtain, update and review the patients current medications (includes all prescriptions, OTC, herbals, cannabis, and nutritional supplements).: Yes
[2024-02-26] MEDS: PANTOPRAZOLE 40 MG TABLET PO (20:17)
[2024-02-26] MEDS: ROSUVASTATIN 5 MG TABLET PO (20:17)
[2024-02-26] MEDS: LATANOPROST 0.005% OP SOLN 2.5 ML BTL 1 DROP EACH EYE (20:18)
[2024-02-26] MEDS: MAG HYDROX/AL HYDROX/SIMETH 30 ML UDC PO (20:18)
[2024-02-27] VITALS: PULSE 81
[2024-02-27 04:00] VITALS: PULSE 113
[2024-02-27 05:00] LABS: Basophils Percent Auto 0.2 % (0.2-1.2); Eosinophils Absolute Auto 0.1 K/mm3 (0-0.3); Eosinophils Percent Auto 0.7 % (0-4.4); Hematocrit 42.5 % (42.0-52.0); Hemoglobin 14.8 g/dL (14.0-18.0); Immature Granulocyte Absolute 0.04 K/mm3 (0.00-0.031); Immature Granulocyte Percent A 0.3 % (0-0.5); Lymphocytes Absolute Auto 1.44 K/mm3 (0.9-3.2); Lymphocytes Percent Auto 12.1 % (18.3-44.2); Mean Corpuscular HGB Conc 34.8 g/dl (32-36); Mean Corpuscular Hemoglobin 30.3 pg (26-34); Mean Corpuscular Volume 87.1 fl (80-100); Mean Platelet Volume 10.9 fl (7.4-10.4); Monocytes Absolute Auto 1.6 K/mm3 (0.1-0.6); Monocytes Percent Auto 13.4 % (2.6-8.5); Neutrophils Absolute Auto 8.8 K/mm3 (1.3-6.7); Neutrophils Percent Auto 73.3 % (45.5-73.1); Platelet Count Result 171 k/mm3 (150-375); Red Blood Count 4.88 M/mm3 (4.6-6.20); Red Cell Distribution Width 13.2 % (11.5-14.5); White Blood Count 11.9 K/mm3 (4.5-10.0)
[2024-02-27 05:13] LABS: Alanine Aminotransferase 33 U/L (6-50); Albumin Level 3.3 g/dL (3.5-5.1); Alkaline Phosphatase 108 U/L (38-126); Anion Gap 4 mmol/L (4-12); Aspartate Amino Transferase 35 U/L (17-59); Bilirubin,Total 1.2 mg/dL (0.2-1.3); Blood Urea Nitrogen 17 mg/dL (9-20); Calcium 8.4 mg/dL (8.4-10.2); Carbon Dioxide 23 mmol/L (22-30); Chloride 107 mmol/L (98-107); Estimated CRCL calculation 45 ml/min; Estimated Glomerular Filt Rate 58; Glucose 119 mg/dL (65-110); Potassium 3.4 mmol/L (3.4-5.0); Sodium 134 mmol/L (137-145)
[2024-02-27 06:07] VITALS: BP 156/93; PULSE 93; RESP 18; TEMP 36.3; O2SAT 96
[2024-02-27 09:10] VITALS: PULSE 95; RESP 18; O2SAT 96
[2024-02-27 09:11] VITALS: PULSE 95
[2024-02-27] MEDS: RIVAROXABAN 15 MG TABLET PO (09:11)
[2024-02-27] MEDS: METOPROLOL TARTRATE 25 MG TABLET PO (09:11)
[2024-02-27] MEDS: amLODIPine BESYLATE 5 MG TABLET PO (09:12)
[2024-02-27] MEDS: lisinopriL 20 MG TABLET 40 MG PO (09:12)
[2024-02-27] MEDS: DOCUSATE SODIUM 100 MG CAPSULE PO (09:13)
[2024-02-27] MEDS: polyethylene glycoL 3350 17 GM POWD.PACK PO (09:14)
[2024-02-27 14:00] VITALS: BP 142/78; PULSE 97; RESP 18; TEMP 37; O2SAT 95
--- NOTE | 2024-02-27 15:42 | PM.DS ---
DS: Admitting Diagnosis Discharge Date 02/27/2024 Admitting Diagnosis Hemoptysis DS: Discharge Diagnosis Discharge Diagnosis (1) Pulmonary embolism: Qualifiers: Pulmonary embolism type: multiple subsegmental (without acute cor pulmonale) Qualified Code(s): I26.94 - Multiple subsegmental thrombotic pulmonary emboli without acute cor pulmonale Code(s): I26.99 - Other pulmonary embolism without acute cor pulmonale Status: Acute Assessment and Plan: - Likely secondary to A-Fib with Hx of Paroxismal Afib. - No DVT on isai. LE. - Initially on Heparin drip and started on Xarelto. - ECHO showing LVEF 50-55%. - Refused to wait for Loan Underwriter and said will f/u with PCP for symptoms or referral if needed. (2) Acute hypoxic respiratory failure: Code(s): J96.01 - Acute respiratory failure with hypoxia Status: Acute Assessment and Plan: - Likely related to # 1. - Currently good O2 sats > 90 % on RA. - We'll consider supplemental O2 if sats < 90 %. (3) Hemoptysis: Code(s): R04.2 - Hemoptysis Status: Acute Assessment and Plan: - Likely related to Isia. PE. - No episodes inpatient. - Said will f/u with PCP or pulmonary outpatient for symptoms. (4) Essential (primary) hypertension: Code(s): I10 - Essential (primary) hypertension Status: Acute Assessment and Plan: - BP fairly well controlled with resumption of home meds. (5) QT prolongation: Code(s): R94.31 - Abnormal electrocardiogram [ECG] [EKG] Status: Acute Assessment and Plan: - EKG showing SR with ocassional PVC's. (6) GERD (gastroesophageal reflux disease): Qualifiers: Esophagitis presence: esophagitis presence not specified Qualified Code(s): K21.9 - Gastro-esophageal reflux disease without esophagitis Code(s): K21.9 - Gastro-esophageal reflux disease without esophagitis Status: Acute Assessment and Plan: - Continued on PPI. Plan Discharge Home DS: Summary Hospital Course Reason for hospitalization: Hemoptysis Hospital Course: Patient presented to the ER with reports of hemoptysis. Patient had CTA Chest done that showed isai. Acute PE with no heart strain. 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 Patient was initially started on Heparin drip and was transitioned to Apixaban prior to his discharge. Loan Underwriter was consulted but pt declined and stated he will follow up with his PCP for symptoms and get referral to beef trimmer if needed. Patient has not had any hemoptysis episodes in patient. He hasn't been in respiratory distress and his PO2 has been > 95% inpatient. Patient had TT ECHO done that did not have any intracardiac embolus or any significant abnormalities. Patient reports his breathing feels normal and he does not have any symptoms, requesting to be discharged home. Patient is medically stable for discharge with no acute symptoms noted or reported prior to discharge. Status at Discharge Functional status at discharge: independent ambulation Overall status at discharge: patient is progressing back to baseline Time Spent with Patient Time attestation: Total time spent providing and/or coordinating discharge services: Time spent: Greater than 30 minutes Exam Narrative: General: Well appearing, no acute distress. HEENT: PERRL, EOM, anicteric, moist mucosa. NECK: Supple. LUNGS: Clear bilaterally. Heart: Regular rhythm, no murmurs, Tele SR with occasional PVC's. Abdomen: Soft, non-tender, non-distended, +ve BS X4 quadrants. Extremities: Acyanotic, no edema. Skin: Warm and dry. Neuro: Well oriented, CN II-XII grossly intact. Psych: Pleasant and co-operative. DS: Data Data Completed and Pending Labs on day of discharge: Labs from last 24 hours 02/27/24 04:17 WBC 11.9 H RBC 4.88 Hgb 14.8 Hct 42.5 MCV 87.1 MCH 30.3 MCHC 34.8 RDW 13.2 Plt Count 171 MPV 10.9 H Immature Gran % (Auto) 0.3 Neut % (Auto) 73.3 H Lymph % (Auto) 12.1 L [place] % (Auto) 13.4 H Eos % (Auto) 0.7 Baso % (Auto) 0.2 Lymph # (Auto) 1.44 [place] # (Auto) 1.6 H Eos # (Auto) 0.1 Baso # (Auto) 0.0 Abs Immat Gran (auto) 0.04 H Absolute Neuts (auto) 8.8 H Absolute Nucleated RBC 0.000 Nucleated RBC % 0.0 Sodium 134 L Potassium 3.4 Chloride 107 Carbon Dioxide 23 Anion Gap 4 BUN 17 Creatinine 1.20 Estim Creat Clear Calc 45 Estimated GFR 58 L Glucose 119 H Calcium 8.4 Total Bilirubin 1.2 AST 35 ALT 33 Alkaline Phosphatase 108 Total Protein 6.0 L Albumin 3.3 L Preliminary micro results at discharge 02/26/24 10:39 Sputum Culture - Preliminary Sputum Discharge Plan Discharge Attending physician on discharge: Alfredo Carrillo Discharging Clinician: Brock Stafford Anticipated Discharge Date/Time: 02/27/24 16:17 Patient Disposition: Home, Self-Care Activity: as tolerated Diet: heart healthy Patient Instructions: Antibiotic Form Patient Language: Salvadorean Stand Alone Forms: General Discharge Information Follow-up/Referrals: Cristian Reno MD [Primary Care Provider] - 1 Week Discharge Medications: New Xarelto 20 mg Tablet 20 mg PO DAILY@1700 Qty: 30 2RF polyethylene glycol 3350 [Miralax] 17 gram Powder In Packet 17 g PO QAM Qty: 30 0RF docusate sodium 100 mg Capsule 100 mg PO DAILY Qty: 30 0RF Xarelto 15 mg Tablet 15 mg PO BIDWM Qty: 39 0RF Rx Instructions: 1 tab BID for 39 doses Continued meclizine 25 mg tablet 25 mg PO BID PRN (Reason: dizziness) Qty: 30 0RF benazepril [Lotensin] 40 mg tablet 40 mg PO DAILY Qty: 90 1RF latanoprost [Xalatan] 0.005 % drops 1 drp ophthalmic (eye) DAILY omeprazole 20 mg capsule,delayed release(DR/EC) 20 mg PO DAILY PRN (Reason: acid reflux) rosuvastatin 5 mg tablet 5 mg PO HS amlodipine 5 mg tablet 5 mg PO DAILY Qty: 90 1RF metoprolol tartrate 25 mg tablet See Rx Instructions .ROUTE .COMPLEX Qty: 90 1RF Dose Instruction: Take 1 tablet by mouth once daily Rx Instructions: Take 1 tablet by mouth once daily Date of admission: 02/25/24 16:31 Primary Care Provider: Cristian Reno Admitting Provider: Alfredo Carrillo Attending physician on admission: Alfredo Carrillo Condition: Serious Quality VTE Prophylaxis VTE prophylaxis: pharmacologic ordered (Xarelto) Hospitalist MIPS Heart Failure (Exclusion) Patient has history of Heart Transplant or Left Ventricular Assistive Device?: No IF YES, STOP HERE Heart Failure (Qualifier) Patient has current or prior documentation of LVEF less than or equal to 40%, or mod/servere depressed LVSF?: No IF NO, STOP HERE
== END 2024-02-27 16:48 | disposition home or self-care (01) | DRG 175 ==
LOC: ANHED 13:42 → ANH2MED 15:39
PROVIDERS: Internal Medicine; Physician Assistant; Admitting Provider Internal Medicine; Emergency Provider Emergency Medicine; PCP Family Medicine; Visit Provider Nurse Practitioner Adult Health
DX: I26.94 Multiple subsegmental thrombotic pulmonary emboli without acute cor pulmonale (principal); J96.01 Acute respiratory failure with hypoxia; R04.2 Hemoptysis; I48.0 Paroxysmal atrial fibrillation; Z91.148 Patient's other noncompliance with medication regimen for other reason; I70.0 Atherosclerosis of aorta; N40.1 Benign prostatic hyperplasia with lower urinary tract symptoms; K21.9 Gastro-esophageal reflux disease without esophagitis; I71.40 Abdominal aortic aneurysm, without rupture, unspecified; E78.00 Pure hypercholesterolemia, unspecified; I10 Essential (primary) hypertension; H40.9 Unspecified glaucoma; Z90.49 Acquired absence of other specified parts of digestive tract
CPT/HCPCS: 36415; 71275; 74177; 80048; 80053; 81001; 83690; 85025; 85610; 85730; 87070; 87205; 87637; 93005; 93970; 96374; 99285; A9270; C8929; G0378; J0360; J1644; J2270; J7030; Q9957; Q9967

== ENCOUNTER 2024-09-02 08:24 | Emergency (ER) | payer MEDICARE, SELFPAY ==
--- NOTE | ~2024-09-02 | XR_ITS ---
CHEST RADIOGRAPH CLINICAL HISTORY: sharp mid back pain x 3 weeks . COMPARISON: 05/30/2018 TECHNIQUE: Single portable view of the chest. FINDINGS Elevation of the left hemidiaphragm is identified with adjacent compressive atelectasis. The right lung field is clear. Cardiomediastinal silhouette is unremarkable. IMPRESSION: Elevation of the left hemidiaphragm with adjacent compressive atelectasis. Reviewed, dictated and finalized at location A.
--- NOTE | ~2024-09-02 | CT_ITS ---
EXAMINATION: CTA chest abdomen pelvis DATE: 09/02/2024 10:13 CDT INDICATION: Back pain with a history of pulmonary embolus and abdominal aortic aneurysm TECHNIQUE: Computed tomographic angiography (CTA) of the chest was performed, along with multiple con tiguous axial images of the abdomen and pelvis with 100 mL Omnipaque-350 intravenous contrast. The do se-length product was 890.77 mGy-cm. Maximum intensity projection 3D-reconstructions of the aorta and other arteries were constructed by the technologist on a separate workstation. COMPARISON: 02/25/2024 FINDINGS/OBSERVATIONS: PULMONARY ARTERIES: No filling defect is identified within the main or proximal pulmonary artery. The main pulmonary artery is not enlarged. THORACIC AORTA: No aneurysmal dilatation or dissection is present. The great vessels are intact LUNGS: Bibasilar atelectasis. The remainder of the lungs are otherwise clear. MEDIASTINUM: No morphologically suspicious or pathologically enlarged lymph nodes are identified with in the mediastinum or bilateral axilla. BONES OF THE CHEST: No acute fracture. No significant degenerative disease. No lytic or blastic lesions. HEART: The heart is enlarged (specifically, left atrial enlargement), without pericardial effusion. LIVER: The liver enhances homogeneously and is not enlarged. GALLBLADDER AND BILIARY SYSTEM: The gallbladder is surgically absent. No intrahepatic ductal dilatation PANCREAS: The pancreas enhances homogeneously without ductal dilatation. SPLEEN: The spleen enhances homogeneously and is not enlarged . KIDNEYS: The bilateral kidneys enhance symmetrically without hydronephrosis or renal calculi. ADRENAL GLANDS: Unremarkable. GASTROINTESTINAL TRACT: Colonic diverticulosis without surrounding inflammatory change. APPENDIX: The appendix is not definitively visualized. However, no pericecal inflammatory change is identified suggest the presence of acute appendicitis. VASCULATURE: Unremarkable. No aneurysmal dilatation or significant stenosis. LYMPH NODES: No pathologically enlarged or morphologically suspicious lymph nodes within the retroperitoneum or at the root of the mesentery. PELVIC STRUCTURES: The bladder is only moderately distended, and otherwise unremarkable. The prostate gland is not enlarged. 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 IMPRESSION: No pulmonary embolus. No aortic dissection. No aneurysmal dilatation of the abdominal aorta. Trace bibasilar atelectasis. Degenerative disease within the lower thoracic and lumbar spines, as detailed above. Reviewed, dictated and finalized at location A. IMPRESSION: No pulmonary embolus. No aortic dissection. No aneurysmal dilatation of the abdominal aorta. Trace bibasilar atelectasis. Degenerative disease within the lower thoracic and lumbar spines, as detailed a sanaz.
--- OUTSIDE RECORDS SUMMARY | 2024-09-02 08:26 | XMS_ITS | Data Portability ---
Author Organization [place] - [facility] OFFICE Address [facility] [place] [address] Care Team Providers Care Electronic Engineering Technician Name Role Phone ARIANANOEL Gerber Primary Care Provider [phone] Assessment No assessment recorded. Plan of Treatment Reminders Order Date Submit Date Provider Last Modified By Organization Details Last Modified Time Details Appointments None recorded . Lab None recorded . Referral None recorded . Procedures None recorded . Surgeries None recorded . Imaging electroc ardiogra m 2019 020 OBI Not available 0 12:54:37 electroc ardiogra m 2018 019 [email or web address] Not available 9 19:14:05 electroc ardiogra m 2018 019 [email or web address] Not available 9 14:12:28 Medication Orders Lite Coat Aspirin 325 mg tablet 2019 020 INTERFACE [facility] 927, [address], [address], 0 10:43:47 Patient TargetsNo targets recorded. Patient Instructions Encounter Date Encounter Id Patient Instructions Last Modified By Organization Details Last Modified Time 06/14/2018 [id number] Exercise advised Low cholesterol diet advised Low sodium diet advised. [email or web address] Not available 06/14/2018 14:12:35 09/13/2018 [id number] Weight loss Low sodium diet Low cholesterol diet Not available 09/13/2018 09:31:48 Patient was seen and evaluated by Christal Ornelas PA-C. Plan of care was discussed with collaborating physician and note cosigned by Dr. Hong Taylor. Not available 09/13/2018 09:31:51 03/14/2019 [id number] Exercise advised . Low cholesterol diet advised. Low sodium diet advised. [email or web address] Not available 03/14/2019 10:27:39 Scribed by Shae FRANCO Not available 03/14/2019 10:27:12 Reason for Referral None Reported. Results Created Date Observation Date Name Description Value Unit Range Abnormal Flag Note LastModifiedBy Organization Detail LastModifiedTime 06/15/19 19 06/14/2018 elect rocamanda manzogr am Result EKG : Sinus bradyc ardia , Low voltag e , chest leads , Probab ly old inferi or myocar dial infarc tion , Poor R progre ssion in chest leads. Not Available Hong Taylor MD [address], [place], [address], 06/14/2018 13:42:44 06/01/19 19 05/31/2018 , echoc ardio gram No observ ation record ed. [email or web address] Not Available 06/01 08:57:39 06/02/19 19 06/01/2018 mary can cardi olite stres s test (PROC ) No observ ation record ed. [address] [place] [address] [address], [place], [address], 06/01/2018 14:05:43 06/15/19 19 06/14/2018 elect memo manzogr am No observ ation record ed. [email or web address] Not Available 06/14 15:31:29 06/15/19 19 05/30/2018 elect rocamanda manzogr am No observ ation record ed. [email or web address] Not Available 2018 18:16:05 09/22/19 19 09/13/2018 elect antoinettear diogr am No observ ation record ed. [email or web address] Not Available 2018 17:53:18 03/21/19 20 03/14/2019 elect memo manzogr am No observ ation record ed. [email or web address] Not Available 2019 12:39:51 Result Notes None recorded. Problems Name Problem SNOMED Code Status Onset Date Resolution Date Notes Provider Name and Address Organization Details Recorded Time Atrial fibrillation 35341210 Active 2018 Nathalie goldstein, [place] - [facility] 9 14:47:06 Essential hypertension 64801210 Active 2018 Nathalie Mercado null, [place] - [facility] 9 14:47:16 Dyspnea 527362986 Active 2018 Nathalie [place]stein, [place] - [facility] 9 14:47:39 Chest pain 66181124 Active 2018 Nathalie glodstein, [place] - [facility] 9 14:49:36 Dyslipidemia 474980378 Active 2018 Nelsonlucita Quinn null, [place] - [facility] 9 13:09:05 Bradycardia 04799994 Active 2018 Nelsonlucita Quinn [facility], [place] - [facility] 9 13:09:15 Paroxysmal atrial fibrillation 282409381 Active 2019 Nelsonlucita Quinn [facility], [place] - [facility] 0 15:11:40 Problem Notes None recorded. Procedures Surgical History Date Name Laterality Status Provider Name and Address Organization Details Recorded Time 03/01/19 00 [facility] 06/14/2018 13:49:35 03/01/18 75 [facility]nia repair [facility] 06/14/2018 13:49:06 Imaging Results None recorded. Procedure Notes None recorded. Medical Equipment None Reported. Allergies Allergen ID Allergen Name Allergen Category Reaction Reaction Severity Criticality Documentation Date Start Date Code Code System Note Provider Name and Address Organization Details Recorded Time 8068 Product containin g penicilli n (product) medicatio n itching mild Not available 06/14/2018 05487 8001 SNOMED [facility], [place] - [facility] 9 13:50:25 Medications Name Sig Start Date Stop Date Status Note LastModified by Organization Details LastModified Time latanoprost 0.005 % eye drops active Not Available Not Available Not Available atorvastati n 20 mg tablet active Not Available Not Available Not Available amlodipine 2.5 mg tablet 03/14 completed No longer take it 9 : MA Not Available Not Available Not Available amlodipine 5 mg tablet active Not Available Not Available Not Available pantoprazol e 40 mg tablet,rima yed release active No longer take it 9 : MA Not Available Not Available Not Available Lite Coat Aspirin 325 mg tablet Take 1 tablet every day by oral route. 2019 active Not Available Not Available Not Avai lable cefuroxime axetil 500 mg tablet active No longer take it 9 : MA Not Available Not Available Not Available benazepril 40 mg tablet active Not Available Not Available Not Available metoprolol tartrate 25 mg tablet active Not Available Not Available No t Available Vitamin C active Not Available Not Ary ilable Not Available [place] 3 active Not Available Not Avail able Not Available Bergamot active Not Available Not Avai lable Not Available Xarelto 20 mg tablet active Not Available Not Available No t Available Shingrix (PF) 50 mcg/0.5 mL intramuscul ar suspension, kit active Not Available Not Available Not Available Vitals Date Recorded Body height Body mass index (BMI) Body weight Heart rate Oxygen saturation Oxygen saturation in Arterial blood by Pulse oximetry Systolic And Diastolic Provider Name and Address Organization Details Last Updated DateTime 0 167.64 cm 29.5 kg/m2 86874.4 g 60 /min 97 % 97 % 150/82 mm[Hg] Marialuisa Anderson [facility] 0 09:56:57 Date Recorded Body weight Heart rate Oxygen saturation Oxygen saturation in Arterial blood by Pulse oximetry Systolic And Diastolic Provider Name and Address Organization Details Last Updated DateTime 9 99425.4 g 52 /min 97 % 97 % 128/78 mm[Hg] DOROTHY Welsh [facility] 9 13:36:13 Date Recorded Body weight Heart rate Oxygen saturation Oxygen saturation in Arterial blood by Pulse oximetry Systolic And Diastolic Provider Name and Address Organization Details Last Updated DateTime 9 42970.0 3 g 53 /min 96 % 96 % 136/90 mm[Hg] Brijesh Akins [facility] 9 09:16:18 Social History Question Answer Notes LastModified by Organizat ion Details LastModified Time Tobacco Smoking Status Former Smoker Quit 1999 Not Available [employer] 01/02/2020 03:30:41 What Is Your Level Of Caffeine Consumption? Moderate [id number] Information not available 01/02/2020 What Was The Date Of Your Most Recent Tobacco Screening? 06/14/2018 [id number] Information not available 01/02/2020 How Much Tobacco Do You Smoke? No [id number] Information not available 01/02/2020 Sex: Unknown Functional Status Question Answer Note LastModified by Organizat ion Details LastModified Time What is your level of alcohol consumption? None [id number] Information not available 01/02/2020 Do you or have you ever used smokeless tobacco? Former smokeless tobacco user [id number] Information not available 01/02/2020 Do you or have you ever used e-cigarettes or vape? Never used electronic cigarettes [id number] Information not available 01/02/2020 What is your exercise level? Occasional [id number] Information not available 01/02/2020 Mental Status None recorded. Family History Relationship Description Onset Age of this Age Resolved Age Notes LastModified by Organization Details LastModified Time Father Hypertensive disorder [email or web address] Not available 05/30 13:45:19 Father Cerebrovascu lar accident [email or web address] Not available 0 06/14/2018 13:46:05 Sister Attack [email or web address] Not availabl e 06/14/2018 13:45:48 Medical History Condition Response Atrial Fibrillation Y High Cholesterol Y Arrhythmia Y Hyperlipidemia Y Hypertension Y Past Encounters Encounter ID Performer Location Encounter Start Date Encounter Closed Date Diagnosis/Indication Diagnosis SNOMED-CT Code Diagnosis ICD10 Code Diagnosis Note [id number] Hong Taylor MD [facility] [address] [place] [address] 06/14/2018 11:34:07 06/14/2018 14:14:10 Fatigue 69925643 R53.83 due to Toprolwill decrease to 12.5 Dyslipidemia 125095996 E 78.5 Paroxysmal atrial fibrillation 582062027 I48.0 On xarelto nowhe has sinus Sage now , will decrease Toprol to 12.5 Essential hypertension 15256858 I10 Bradycardia 11103234 R00 .1 [id number] Hong Taylor MD [facility] [place] [address] 09/13/2018 09:00:04 09/24/2018 19:14:11 Dyslipidemia 943014586 E78.5 Paroxysmal atrial fibrillation 991509727 I48.0 On xareltO, sinus Sage with no symptoms. Continue Toprol 12.5 mg daily. Essential hypertension 85198698 I10 Well controlled . Continue medication s. Bradycardia 29019263 R00 .[address] [place] [id number] Hong Taylor MD [facility] [place] [address] 03/14/2019 09:18:38 03/14/2019 17:39:53 Dyslipidemia 591728699 E78.5 Needs to keep LDL less than 70, and HDL more than 40 Will get lipid profile results from PCP 10/27/18 LDL 113current ly taking atorvastat in 20 encouraged to the coffee intake Paroxysmal atrial fibrillation 049940878 I48.0 On xareltO, sinus Sage with no symptoms. Continue Toprol 12.5 mg daily. Patient ok to stop the xarelto and start full dose ASA Essential hypertension 84131598 I10 Well controlled . Continue medication s. Bradycardia 20118876 R00 .1 stable HR 61asymptom atic. Health Concerns Section Related Observation LastModified by Organization Detai ls LastModified Time None Recorded Concern Status LastModified by Organization Details LastModified Time None Recorded Advance Directives Directive None Recorded Payers Insurance Date Sequence Insurance Name Policy Number Policy Stephens Covered Member ID Stephens Member ID Guarantor Name 09/01/2019 1 [facility] (MEDICARE REPLACEMENT/A DVANTAGE - HMO) [id number] Roland Reno [id number] Roland Reno 06/13/2018 1 [facility] (MEDICARE REPLACEMENT/A DVANTAGE - O) [id number] Roland eRno [id number] Roland Reno Notes Date Note Type Note Provider Name and Address Organization Details Recorded Time 06/14/2018 text/html 06/14/18 CC: Fatigue 72 year-old man with a PMH of Hypertension, presents today for hospital follow-up. He feels well overall with no new complaints. He presented to [facility] a few weeks ago for dyspnea on exertion, and afib No chest pain. No shortness of breath at rest. No exertional dyspnea. No orthopnea or PND's. No palpitations. No edema. No side effects from current medications. 4/2/19 ECHO: Normal left ventricular size. Moderate concentric left ventricular hypertrophy. normal global left ventricular systolic function. Impaired diastolic relaxation Grade I. EF=52%. There is mild enlargement of left atrium. Technically difficult study with limited views. 06/01/18 Stress Test: Normal hemodynamics response to exercise. No significant exercise induced arrhythmia's. No exercise induced chest pain. No ECG evidence of ischemia at 85% maximum predicted heart rate. Below average exercise capacity. Nuclear images pending. Results from this visit, or from the past: EKG 06/14/18 : Sinus bradycardia , Low voltage , chest leads , Probably old inferior myocardial infarction , Poor R progression in chest leads. 06/01/18 Stress Test: Normal hemodynamics response to exercise. No significant exercise induced arrhythmia's. No exercise induced chest pain. No ECG evidence of ischemia at 85% maximum predicted heart rate. Below average exercise capacity. Nuclear images pending. 05/31/18 ECHO: Normal left ventricular size. Moderate concentric left ventricular hypertrophy. normal global left ventricular systolic function. Impaired diastolic relaxation Grade I. EF=52%. There is mild enlargement of left atrium. Technically difficult study with limited views. Hong Taylor MD [address] [place], [address], [facility] 06/14/2018 14:14:08 09/13/2018 text/html 09/12/2018 CC: dyspnea on exertion 72 year-old man with a PMH of paroxysmal AFIB, HTN presents today for follow-up. He reports feel well. 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 Takes medications daily. No major bleeding events. He monitors blood pressure and HR, ave 120-130s, HR 50-60s. No chest pain. No shortness of breath at rest. No exertional dyspnea. No orthopnea or PND's. No palpitations. No edema. No side effects from current medications. 05/31/18 ECHO: Normal left ventricular size. Moderate concentric left ventricular hypertrophy. normal global left ventricular systolic function. Impaired diastolic relaxation Grade I. EF=52%. There is mild enlargement of left atrium. Technically difficult study with limited views. 06/01/18 Stress Test: Normal hemodynamics response to exercise. No significant exercise induced arrhythmia's. No exercise induced chest pain. No ECG evidence of ischemia at 85% maximum predicted heart rate. Below average exercise capacity. Nuclear images pending. 05/30/2018: [facility] a few weeks ago for dyspnea on exertion, and inital diagnosis of AFIB Results from this visit, or from the past: EKG 09/13/18 Sinus bradycardia. Low voltage,chest leads. Probably old inferior myocardial infarction. Poor R progression in chest leads. EKG 06/14/18 : Sinus bradycardia , Low voltage , chest leads , Probably old inferior myocardial infarction , Poor R progression in chest leads. 06/01/18 Stress Test: Normal hemodynamics response to exercise. No significant exercise induced arrhythmia's. No exercise induced chest pain. No ECG evidence of ischemia at 85% maximum predicted heart rate. Below average exercise capacity. Nuclear images pending. 05/31/18 ECHO: Normal left ventricular size. Moderate concentric left ventricular hypertrophy. normal global left ventricular systolic function. Impaired diastolic relaxation Grade I. EF=52%. There is mild enlargement of left atrium. Technically difficult study with limited views. Hong Taylor MD [address] [place], [address] 09/24/2018 19:14:10 03/14/2019 text/html 03/14/19 CC: follow up A-fib 73 year-old man with a PMH of paroxysmal AFIB, HTN presents today for follow-up. Patient was last here in August. He is doing well today with no complaints of chest pain or discomfort. Patient taking all his medications with little side effects. Patient states that he has some occasional lightheadedness with position change. No major bleeding events. home bp 120-140/ 60-70 Patient wants to stop taking the xarelto. No chest pain. No shortness of breath at rest. No exertional dyspnea. No orthopnea or PND's. No palpitations. No edema. No side effects from current medications. 05/31/18 ECHO: Normal left ventricular size. Moderate concentric left ventricular hypertrophy. normal global left ventricular systolic function. Impaired diastolic relaxation Grade I. EF=52%. There is mild enlargement of left atrium. Technically difficult study with limited views. 06/01/18 Stress Test: Normal hemodynamics response to exercise. No significant exercise induced arrhythmia's. No exercise induced chest pain. No ECG evidence of ischemia at 85% maximum predicted heart rate. Below average exercise capacity. Nuclear images pending. 05/30/2018: [facility] a few weeks ago for dyspnea on exertion, and inital diagnosis of AFIB Results from this visit, or from the past: CMP, serum or plasma 05-31-2018 05/31/18: Na 141 , K 4.5 ,CL 108 ,CO2 26 ,GLU 87 ,BUN 20 ,CR 1.0, CBC w/ diff 05-31-2018 05/31/18: HB 15.3, HT 45.3 EKG 09/13/18 Sinus bradycardia. Low voltage,chest leads. Probably old inferior myocardial infarction. Poor R progression in chest leads. EKG 06/14/18 : Sinus bradycardia , Low voltage , chest leads , Probably old inferior myocardial infarction , Poor R progression in chest leads. 06/01/18 Stress Test: Normal hemodynamics response to exercise. No significant exercise induced arrhythmia's. No exercise induced chest pain. No ECG evidence of ischemia at 85% maximum predicted heart rate. Below average exercise capacity. Nuclear images pending. 05/31/18 ECHO: Normal left ventricular size. Moderate concentric left ventricular hypertrophy. normal global left ventricular systolic function. Impaired diastolic relaxation Grade I. EF=52%. There is mild enlargement of left atrium. Technically difficult study with limited views. Hong Taylor MD [address] [place], [address], [facility] 03/14/2019 17:39:50
[2024-09-02 08:30] VITALS: BP 191/96; PULSE 75; RESP 18; TEMP 36.4; O2SAT 98
[2024-09-02 08:43] VITALS: BP 185/105; PULSE 84; RESP 20; TEMP 36.5; O2SAT 100
--- NOTE | 2024-09-02 08:54 | ECG_ITS ---
Test Date: 2024-09-02 09:03:26 Measurements Intervals [place] Rate: 72 P: -28 MA: 104 QRS: -27 QRSD: 154 T: 143 QT: 430 QTc: 473 Interpretive Statements SINUS RHYTHM WITH SHORT MA INTERVAL possible pre-excitation LEFT BUNDLE BRANCH BLOCK [120+ ms QRS DURATION, 80+ ms Q/S IN V1/V2, 85+ ms R IN I/aVL/V5/V6] Compared to ECG 02/26/2024 10:46:53 Ventricular premature complex(es) no longer present Electronically Signed On 09-02-2024 14:08:38 CDT by William Bowen M.D.
[2024-09-02 09:08] LABS: Hematocrit 45.7 % (42.0-52.0); Hemoglobin 15.2 g/dL (14.0-18.0); Immature Granulocyte Percent A 0.4 % (0-0.5); Lymphocytes Absolute Auto 1.26 K/mm3 (0.9-3.2); Mean Corpuscular HGB Conc 33.3 g/dl (32-36); Mean Corpuscular Hemoglobin 29.7 pg (26-34); Mean Corpuscular Volume 89.3 fl (80-100); Nucleated Red Blood Cells Absolute Auto 0.000 K/mm3 (0.0-0.012); Nucleated Red Blood Cells Perc 0.0 % (0.0-0.2); Platelet Count Result 167 k/mm3 (150-375); Red Blood Count 5.12 M/mm3 (4.6-6.20); White Blood Count 7.3 K/mm3 (4.5-10.0)
--- OUTSIDE RECORDS SUMMARY | 2024-09-02 09:11 | XMS_ITS | Clinical Summary ---
Author Organization [facility] Address [address] [place] [address] Care Team Providers Care Traveling Sales Executive Name Role Phone Unavailable Primary Care Provider Unavailabl e Social History Tobacco Use Types Packs/Day Years Used Date Smoking Tobacco: Never Assessed Sex and Gender Information Value Date Recorded Sex Assigned at Not on file Legal Sex Male 7:49 PM CDT Gender Identity Not on file Sexual Orientation Not on file Plan of Treatment Health Maintenance Due Date Last Done Comments Hepatitis C 1963 DTaP, Tdap and Td Vaccines ( 1 - Tdap) 09[birth year]24/1964 Pneumococcal Vaccine: 50+ Ye ars (1 of 1 - PCV) 1994 Zoster Vaccines (1 of 2) 1994 RSV Immunization or 60+ Years (1 - 1-dose 75+ series) 09/24/2019 COVID-19 Vaccine (2023-2 5 season) 2023 Meningococcal B Vaccine Aged Out No l onger eligible based on patient's age to complete this topic Meningococcal Vaccine Aged Out No leland selene eligible based on patient's age to complete this topic RSV Immunizations Under 20 Months Aged Out No longer eligible based on patient's age to complete this topic
[2024-09-02 09:13] LABS: Add Urine Microscopic? NO; Appearance Urine Clear (Clear); Glucose Urine UA Negative (Negative); Leukocyte Esterase Ur Negative LEU/UL (Negative); Nitrate Urine Negative (Negative); Specific Grav Ur 1.012 (1.001-1.035)
[2024-09-02 09:18] LABS: Albumin Level 3.9 g/dL (3.5-5.1); Alkaline Phosphatase 57 U/L (38-126); Anion Gap 8 mmol/L (4-12); Bilirubin,Total 0.5 mg/dL (0.2-1.3); Blood Urea Nitrogen 16 mg/dL (9-20); Calcium 8.9 mg/dL (8.4-10.2); Carbon Dioxide 24 mmol/L (22-30); Chloride 107 mmol/L (98-107); Estimated CRCL calculation 52 ml/min; Estimated Glomerular Filt Rate > 60; Glucose 112 mg/dL (65-110); Lipase 37 U/L (23-300); Magnesium 2.0 mg/dL (1.6-2.3); Potassium 4.4 mmol/L (3.4-5.0); Sodium 139 mmol/L (137-145); Total Protein 6.5 g/dL (6.3-8.2)
[2024-09-02 09:19] LABS: Alanine Aminotransferase 17 U/L (6-50); Aspartate Amino Transferase 22 U/L (17-59)
[2024-09-02 09:25] LABS: INR 1.4; Prothrombin Time 17.2 Seconds (11.1-14.7)
[2024-09-02 09:26] LABS: Partial Thromboplastin Time 42.6 Seconds (22.3-36.8)
[2024-09-02 09:28] LABS: NT Pro B Type Natriuretic Pept 1540 pg/mL (19.9-100)
[2024-09-02 09:30] LABS: Troponin I < 0.012 ng/mL (0.000-0.034)
--- NOTE | 2024-09-02 10:33 | ED_ITS ---
HPI - General Adult General Chief complaint: Back Pain/Injury Stated complaint: back pain Time Seen by Provider: 09/02/24 08:45 History of Present Illness HPI narrative: Patient 78-year-old gentleman who presents emergency department with chief complaint of mid back pain for the last 3 weeks. Patient reports pain is sharp reports that it is worse with certain positions the patient does report that he has prior history of pulmonary embolism and reports he has also history of an abdominal aortic aneurysm. Patient states that he has no specific chest pain reports no shortness of breath denies vomiting denies diarrhea the patient denies bowel or bladder incontinence Related Data Home Medications ?Medication ?Instructions ?Recorded ?Confirmed ?Last Taken ?Type latanoprost 0.005 % eye drops 1 drp ophthalmic (eye) DAILY 01/29/20 06/05/24 02/25/24 History (Xalatan) omeprazole 20 mg capsule,delayed 20 mg PO DAILY PRN acid reflux 02/25/24 06/05/24 Unknown History release Allergies Allergy/AdvReac Type Severity Reaction Status Date / Time Penicillins Allergy Intermediate ITCHING Verified 09/02/24 08:49 Review of Systems 2 Review of Systems: A 10 system review of systems was completed on the patient and is negative except for what is stated in the HPI. Nursing and ancillary documentation was reviewed. [facility] Past Medical History Medical History Personal history of pulmonary embolism Pulmonary embolism Benign positional vertigo Paroxysmal atrial fibrillation Atherosclerosis of aorta Post-void dribbling Benign prostatic hyperplasia with lower urinary tract symptoms Gastritis, unspecified, without bleeding GERD (gastroesophageal reflux disease) Abdominal aortic aneurysm without rupture Essential (primary) hypertension Hypercholesterolemia Surgical History Surgical History Status post cholecystectomy History of right inguinal hernia repair Social History Social History Social History: He lives with his of 60 years. They raised 3 children. 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 He walks 2.5 miles per day. Denies history of tobacco use. He used to occasionally drink alcohol in moderation but has not done so in many years. He denies illicit substance use. Code status: Full code Healthcare power of attorney at law: Tiffany () Smoking status: Never smoker Second hand tobacco smoke exposure: No Alcohol intake: never Substance use: never Substance use type: does not use Do You Feel Safe in your Home?: Yes Lack of Transportation: No Lack of Food: Never True Current Housing: I Have Housing Concerned About Future Housing: No Difficulty Paying Gas/Electric Bills: No Difficulty Paying for Meds: No Currently Unemployed: No Education: High School Diploma/GED Difficulty w/ Childcare or Family Care: No Living arrangements: with family Occupation/Education: retired Gender identity (if verbalized by the patient): Male Sexual Orientation (if Verbalized by the Patient): Straight or Heterosexual Spiritual care concerns: No Exam 2 Narrative: GENERAL: Well-appearing, well-nourished, and in no acute distress. HEAD: Normocephalic, atraumatic. EYES: PERRLA and EOMI. ENT: Nares clear, no rhinorrhea or epistaxis. Mucous membranes moist. NECK: Supple. CHEST: Clear to auscultation. No respiratory distress. HEART: Regular rate and rhythm. No murmur heard. Normal peripheral pulses. ABDOMEN: Soft, nontender, nondistended, normal active bowel sounds. EXTREMITIES: Normal range of motion. No edema. SKIN: Warm, dry, no rash. NEURO: No focal deficits. Alert and oriented x3. PSYCH: Normal mood and affect. Course Vital Signs Vital signs: Vital Signs Temperature 36.4 C 09/02/24 08:30 Pulse Rate 75 09/02/24 08:30 Respiratory Rate 18 09/02/24 08:30 Blood Pressure 191/96 H 09/02/24 08:30 Pulse Oximetry 98 09/02/24 08:30 Temperature 36.5 C 09/02/24 08:43 Pulse Rate 84 09/02/24 08:43 Respiratory Rate 20 09/02/24 08:43 Blood Pressure 185/105 H 09/02/24 08:43 Pulse Oximetry 100 09/02/24 08:43 Oxygen Delivery Room Air 09/02/24 08:43 Medical Decision Making MDM Narrative Medical decision making narrative: Differential diagnosis includes pulmonary embolism, thoracic or abdominal aortic aneurysm. Muscle strain, Laboratory studies were obtained on the patient which showed a normal CBC CMP showed no acute abnormality BNP was 1500 troponin was negative lipase was normal urinalysis she was normal CTA chest abdomen pelvis showed no evidence of pulmonary embolism no evidence of abdominal aortic aneurysm. There were no acute findings on the CT scan. Given normal CT and negative troponin the patient will be treated as though this is musculoskeletal patient will push on a muscle relaxer and will also be started on a steroid patient follow-up with his primary care provider Vital Signs Vital Signs: Vital Signs Temperature 36.4 C 09/02/24 08:30 Pulse Rate 75 09/02/24 08:30 Respiratory Rate 18 09/02/24 08:30 Blood Pressure 191/96 H 09/02/24 08:30 Pulse Oximetry 98 09/02/24 08:30 Temperature 36.5 C 09/02/24 08:43 Pulse Rate 84 09/02/24 08:43 Respiratory Rate 20 09/02/24 08:43 Blood Pressure 185/105 H 09/02/24 08:43 Pulse Oximetry 100 09/02/24 08:43 Oxygen Delivery Room Air 09/02/24 08:43 Lab Data 09/02/24 09:01 09/02/24 09:01 Labs: Lab Results 09/02/24 09/02/24 Range/Units 09:01 09:07 WBC 7.3 (4.5-10.0) K/mm3 RBC 5.12 (4.6-6.20) M/mm3 Hgb 15.2 (14.0-18.0) g/dL Hct 45.7 (42.0-52.0) % MCV 89.3 (80-100) fl MCH 29.7 (26-34) pg MCHC 33.3 (32-36) g/dl RDW 13.3 (11.5-14.5) % Plt Count 167 (150-375) k/mm3 MPV 10.5 H (7.4-10.4) fl Immature Gran % (Auto) 0.4 (0-0.5) % Neut % (Auto) 72.3 (45.5-73.1) % Lymph % (Auto) 17.2 L (18.3-44.2) % Branch % (Auto) 9.0 H (2.6-8.5) % Eos % (Auto) 0.8 (0-4.4) % Baso % (Auto) 0.3 (0.2-1.2) % Lymph # (Auto) 1.26 (0.9-3.2) K/mm3 Branch # (Auto) 0.7 H (0.1-0.6) K/mm3 Eos # (Auto) 0.1 (0-0.3) K/mm3 Baso # (Auto) 0.0 (0.0-0.1) K/mm3 Abs Immat Gran (auto) 0.03 (0.00-0.031) K/mm3 Absolute Neuts (auto) 5.3 (1.3-6.7) K/mm3 Absolute Nucleated RBC 0.000 (0.0-0.012) K/mm3 Nucleated RBC % 0.0 (0.0-0.2) % PT 17.2 H (11.1-14.7) Seconds INR 1.4 APTT 42.6 H (22.3-36.8) Seconds Sodium 139 (137-145) mmol/L Potassium 4.4 (3.4-5.0) mmol/L Chloride 107 (98-107) mmol/L Carbon Dioxide 24 (22-30) mmol/L Anion Gap 8 (4-12) mmol/L BUN 16 (9-20) mg/dL Creatinine 1.05 (0.7-1.3) mg/dL Estim Creat Clear Calc 52 ml/min Estimated GFR > 60 (59 - ) Glucose 112 H (65-110) mg/dL Lactic Acid 1.3 (0.7-2.0) mmol/L Calcium 8.9 (8.4-10.2) mg/dL Magnesium 2.0 (1.6-2.3) mg/dL Total Bilirubin 0.5 (0.2-1.3) mg/dL AST 22 (17-59) U/L ALT 17 (6-50) U/L Alkaline Phosphatase 57 (38-126) U/L Troponin I < 0.012 (0.000-0.034) ng/mL NT-Pro-B Natriuret Pep 1540 H (19.9-100) pg/mL Total Protein 6.5 (6.3-8.2) g/dL Albumin 3.9 (3.5-5.1) g/dL Lipase 37 (23-300) U/L Urine Color Yellow (Yellow) Urine Appearance Clear (Clear) Urine pH 6.0 (5.0-9.0) Ur Specific [place] 1.012 (1.001-1.035) Urine Protein Negative (Negative) mg/dL Urine Glucose (UA) Negative (Negative) mg/dL Urine Ketones Negative (Negative) mg/dL Ur Blood (Man) Negative (Negative) Urine Nitrate Negative (Negative) Urine Bilirubin Negative (Negative) Urine Urobilinogen 0.2 (<2.0) mg/dL Leukocyte Esterase Rfl Negative (Negative) SYLVIA/UL Discharge Plan Discharge Clinical Impression: Back pain Patient Disposition: Home Condition: Stable Instructions: Antibiotic Form, Thoracic Back Strain (ED) Patient Language: Venezuelan Prescriptions: New tizanidine [Zanaflex] 4 mg capsule 4 mg PO TID PRN (Reason: muscle spasticity) 7 Days Qty: 21 0RF prednisone 20 mg tablet 40 mg PO DAILY 5 Days Qty: 10 0RF No Action latanoprost [Xalatan] 0.005 % drops 1 drp ophthalmic (eye) DAILY omeprazole 20 mg capsule,delayed release(DR/EC) 20 mg PO DAILY PRN (Reason: acid reflux) docusate sodium 100 mg Capsule 100 mg PO DAILY Qty: 30 0RF metoprolol tartrate 25 mg tablet See Rx Instructions .ROUTE .COMPLEX Qty: 90 1RF Dose Instruction: Take 1 tablet by mouth once daily Rx Instructions: Take 1 tablet by mouth once daily amlodipine 5 mg tablet 5 mg PO DAILY Qty: 100 1RF benazepril [Lotensin] 40 mg tablet 40 mg PO DAILY Qty: 90 1RF rosuvastatin 5 mg tablet 5 mg PO HS Qty: 100 1RF Xarelto 20 mg tablet 20 mg PO DAILY@1700 Qty: 30 2RF Follow-up/Referrals: Cristian Reno MD [Primary Care Provider] - Time of Disposition: 10:45
[2024-09-02 11:09] VITALS: BP 139/87; PULSE 60; RESP 20; O2SAT 97
== END 2024-09-02 11:14 | disposition home or self-care (01) ==
PROVIDERS: Emergency Provider Emergency Medicine; PCP Family Medicine
DX: M54.6 Pain in thoracic spine (principal); I48.91 Unspecified atrial fibrillation; Z86.711 Personal history of pulmonary embolism; Z79.01 Long term (current) use of anticoagulants
CPT/HCPCS: 36415; 71045; 71275; 74174; 80053; 81003; 83605; 83690; 83735; 83880; 84484; 85025; 85610; 85730; 93005; 99284; Q9967